=== PATIENT | male | born 1960 | race Caucasian/White ===

== ENCOUNTER 2018-07-04 09:16 | Emergency (ER) | payer BC ==
[~2018-07-04] VITALS: Ht 304.8 cm; Wt 119.7 kg
[~2018-07-04 09:16] MED LIST: DIPH1TAB45 PO
[2018-07-04] MEDS ORDERED: KETOROLAC 60 MG/2 ML VIAL IM STA (10:03)
[2018-07-04] MEDS ORDERED: CYCLOBENZAPRINE 10 MG (FLEXERIL) TAB PO STA (10:03)
--- NOTE | 2018-07-04 10:12 | ED Cough/URI ---
General Chief Complaint: Cough/Cold/Flu Symptoms Stated Complaint: LOWER BACK PAIN;COUGH Nursing Triage Note: 0922 - AMBULATED TO ROOM 06 VIA AMB. COUGH X5 MONTHS. COMPLAINS OF BACK PAIN RIGHT MIDDLE BACK. RECENT ADMIT TO [place] 2 WEEKS AGO FOR PNEUMONIA. IS SUPPOSE TO BE MAKING AN APPT WITH NATE. Sepsis Screen: No Definite Risk Source: patient Exam Limitations: no limitations History of Present Illness Date Seen by Provider: Jul 04, 2018 Time Seen by Provider: 09:51 Initial Comments Here with report of cough it's been going on chronically for several months. He was on a blood pressure medicine which I assume is MOUNA inhibitor that he had to stop due to cough but he still has the cough. He is due to see Dr. Coffman. This morning at about 8:30 he was coughing and then reached for something and has significant pain between the shoulder blade and the spine on the right side. It hurts when he moves his arm or takes a deep breath. Also hurts when he is coughing. Concerned he may have broke a rib and/or has pneumonia. Was treated for pneumonia a few weeks ago. He was at [facility] in [facility] for that. He is still working on follow-up appointment with Dr. Coffman. Timing/Duration: this morning, getting worse Severity/Quality: dry cough Prior Episodes/Possible Cause: chronic episodes Modifying Factors: Worse With Coughing; Improves With Rest Associated Symptoms: cough, fever/chills, shortness of breath Allergies and Home Medications Allergies Coded Allergies: No Known Drug Allergies (Unverified , 08/04/12) Home Medications Diphenoxylate/Atropine 1 Ea Tablet, 1 EA PO Q4H Prescribed by: KEVEN SANDERS on 08/04/12 1632 Patient Home Medication List Home Medication List Reviewed: Yes Review of Systems Review of Systems Constitutional: see HPI EENTM: no symptoms reported Respiratory: cough; No short of breath Cardiovascular: No chest pain, No edema Gastrointestinal: No abdominal pain, No nausea, No vomiting Musculoskeletal: back pain, muscle pain Skin: no symptoms reported Past Lwstgke-Xwdbmk-Vaxrsb Hx Past Med/Social Hx: Reviewed Nursing Past Med/Soc Hx Patient Social History Alcohol Use: Denies Use Recreational Drug Use: No Smoking Status: Never a Smoker Recent Foreign Travel: No Contact w/Someone Who Travel: No Recent Infectious Disease Expo: No Recent Hopitalizations: Yes ([facility] 2 WEEKS AGO FOR PNEUMONIA) Past Medical History Surgeries: Yes (bowel perforation) Ear Surgery, Orthopedic Respiratory: No Cardiac: Yes High Cholesterol, Hypertension Neurological: No Genitourinary: No Gastrointestinal: No Musculoskeletal: No Endocrine: No HEENT: No Cancer: No Integumentary: No Family Medical History Reviewed Nursing Family Hx Physical Exam Vital Signs - First Documented 07/04/18 09:34 Temp 97.4 Pulse 90 Resp 16 B/P (MAP) 144/79 (100) Pulse Ox 95 O2 Delivery Room Air Capillary Refill : Less Than 3 Seconds Height: 10'" Weight: 264lbs. oz. 119.080735rp; BMI Method:Stated General Appearance: WD/WN, no apparent distress HEENT: PERRL/EOMI, pharynx normal Neck: full range of motion, supple Respiratory: lungs clear, normal breath sounds Cardiovascular: regular rate, rhythm, no murmur Extremities: non-tender, other (pain with range of motion of the right arm and the anterior and posterior flexion of the shoulder which causes pain to the area between the scapula and spine. Point tenderness to lower third area with muscular spasm noted.) Neurologic/Psychiatric: alert, oriented x 3 Progress/Results/Core Measures Suspected Sepsis Recent Fever Within 48 Hours: No Infection Criteria Present: None New/Unexplained Altered Menta: No Sepsis Screen: No Definite Risk SIRS Temperature:97.4 Pulse: 90 Respiratory Rate: 16 Blood Pressure 144 /79 Mean: 100 Laboratory Tests 07/04/18 11:00: Creatinine 0.91 Results/Orders Lab Results Laboratory Tests Test 07/04/18 11:00 Range/Units Sodium Level 136 135-145 MMOL/L Potassium Level 4.6 3.6-5.0 MMOL/L Chloride Level 100 98-107 MMOL/L Carbon Dioxide Level 24 21-32 MMOL/L Anion Gap 12 5-14 MMOL/L Blood Urea Nitrogen 13 7-18 MG/DL Creatinine 0.91 0.60-1.30 MG/DL Estimat Glomerular Filtration Rate > 60 BUN/Creatinine Ratio 14 Glucose Level 100 70-105 MG/DL Calcium Level 9.8 8.5-10.1 MG/DL My Orders Orders - MARTINE IBARRA MD Chest Pa/Lat (2 View) (07/04/18 10:03) Cyclobenzaprine Tablet (Flexeril Tablet) (07/04/18 10:03) Ketorolac Injection (Toradol Injection) (07/04/18 10:03) I-Stat Bedside Testing (07/04/18 10:57) Saline Lock/Iv-Start (07/04/18 10:57) Ns Iv 1000 Ml (Sodium Chloride 0.9%) (07/04/18 10:57) Ct Chest W (07/04/18 10:58) Iohexol Injection (Omnipaque 350 Mg/Ml 1 (07/04/18 11:15) Received Contrast (Contrast Received) (07/04/18 11:15) Ns (Ivpb) (Sodium Chloride 0.9% Ivpb Bag (07/04/18 11:15) Basic Metabolic Panel (07/04/18 11:17) Medications Given in ED Current Medications Medications Dose Ordered Sig/Tony Route Start Time Stop Time Status Last Admin Dose Admin Iohexol 75 ml ONCE ONCE IV 07/04/18 11:15 07/04/18 11:16 DC 07/04/18 11:49 75 ML Sodium Chloride 100 ml ONCE ONCE IV 07/04/18 11:15 07/04/18 11:16 DC 07/04/18 11:49 80 ML Sodium Chloride 1,000 ml @ 0 mls/hr Q0M ONCE IV 07/04/18 10:57 07/04/18 10:59 DC 07/04/18 11:51 1,000 MLS/HR Vital Signs/I&O 07/04/18 09:34 Temp 97.4 Pulse 90 Resp 16 B/P (MAP) 144/79 (100) Pulse Ox 95 O2 Delivery Room Air Capillary Refill : Less Than 3 Seconds Blood Pressure Mean: 100 Progress Note : Progress Note Seen and evaluated. Chest x-ray. Patient has point tenderness in the area of the rhomboids. Toradol 60 mg IM and Flexeril 10 mg by mouth. Monitor patient. 1050: Chest x-ray noted. Patient needs CT scan further recommendations. I did discuss the case with Dr. Coffman. He is recommending CT chest with contrast. IV and i-STAT ordered. Normal saline [address] Coffman would like to see the patient in clinic as well on at 1 PM and this was discussed with the patient who agreed. Pending CT scan. 1325: I did discuss the CT results with the patient. There is concern about mass. I rediscussed this with Dr. Coffman. He 'll continue appointment on . Patient does have rib fracture and we will prescribe short course of pain medicine. Discharged home with return precautions. Patient and family verbalize understanding instructions and agreement with plan. Diagnostic Imaging Diagonstic Imaging: Xray Plain Films/CT/US/NM/MRI: chest Comments [facility], [place] NAME: EMILIA CRUZ [facility] REC#: [id number] PT STATUS: REG ER : 1960 PHYSICIAN: MARTINE IBARRA MD ADMIT DATE: 07/04/18/ER Draft Date of Exam:07/04/18 CHEST PA/LAT (2 VIEW) INDICATION: Cough x5 months. Back pain.. TECHNIQUE: Two view chest 10:18 AM CORRELATION STUDY: None FINDINGS: Heart size enlarged. Mediastinum is prominent including the region of the ascending aorta. Likely tortuous ectatic thoracic aorta. There is asymmetric fullness about the left perihilar region appears be likely over the posterior left hemithorax. This may be owing to underlying effusion, perhaps loculated. Right lung appearing generally clear. Slight accentuated thoracic kyphotic curvature. IMPRESSION: 1. Irregular density about the left hilar region likely over the posterior medial aspect of the left hemithorax. This could be perhaps some loculated fluid. Other process including consolidation or even mass lesion not excluded. 2. There is some prominent appearance about the region of the ascending aorta. 3. Given the overall findings as well the prolonged history of cough, in correlation CT imaging the chest would be recommended for followup. Dictated on workstation # [id number] Dict: 07/04/18 1036 Trans: 07/04/18 1043 [facility] [id number] Interpreted by: MATT HOYOS DO Electronically signed by: Diagonstic Imaging: CT Plain Films/CT/US/NM/MRI: chest Comments [facility] [place], [place] NAME: EMILIA CRUZ [facility] REC#: [id number] PT STATUS: REG ER : 1960 PHYSICIAN: MARTINE IBARRA MD ADMIT DATE: 07/04/18/ER Draft Date of Exam:07/04/18 CT CHEST W PROCEDURE: CT chest with contrast only. TECHNIQUE: Multiple contiguous axial images were obtained through the chest after administration of intravenous contrast. INDICATION: Cough and right-sided chest pain. Correlation is made with recent chest radiograph from earlier the same day. No axillary lymphadenopathy is seen. There are small lymph nodes in the mediastinum. The right hilum is unremarkable. There is a large mass/consolidation in the left hilum and infrahilar region correlating with chest radiograph abnormality. This measures approximately 9.7 cm AP by 7.6 cm transverse. This does appear to encase the left lower lobe bronchus resulting in some additional left lower lobe atelectasis. There is a small left effusion as well. No significant pericardial or right-sided pleural effusion is identified. The right lung is clear. Note is made of a fracture involving the right posterior lateral sixth rib. Bony structures are otherwise unremarkable. Upper abdomen is unremarkable. IMPRESSION: 1. Masslike density or consolidation in the left hilum/infrahilar region accounting for the chest radiographic abnormality. There is also a small associated left-sided effusion. Features are concerning for a primary lung neoplasm. Bronchoscopy is likely indicated. No definite mediastinal or right hilar lymphadenopathy is identified although there are some mildly prominent nodes in the subcarinal location. 2. Right posterior lateral sixth rib fracture. Dictated on workstation # [id number] Dict: 07/04/18 1208 Trans: 07/04/18 1230 [facility] [id number] Interpreted by: CELIA BURGOS MD Electronically signed by: Departure Impression Primary Impression: Mass of left lung Additional Impression: Fracture of six ribs of right side Qualified Codes: S22.41XA - Multiple fractures of ribs, right side, initial encounter for closed fracture Disposition: 01 HOME, SELF-CARE Condition: Stable Departure-Patient Inst. Decision time for Depature: 13:29 Referrals: DALTON COFFMAN,LOCAL PHYSICIAN (PCP) Primary Care Physician Patient Instructions: Rib Fracture (DC) Add. Discharge Instructions: All discharge instructions reviewed with patient and/or family. Voiced understanding. Is very important that he follow up with Dr. Coffman on at 1 PM as scheduled. You may take ibuprofen 800 mg every 8 hours as needed for pain. You may take Tylenol/acetaminophen 1000 mg every 8 hours as needed for pain but do not take with prescribed pain medicine as they both have acetaminophen in them. Take other medications as prescribed. Return for worse pain, fever, vomiting, weakness, breathing problems or other concerns as needed. Scripts Hydrocodone Bit/Acetaminophen (Hydrocodone/Acetaminophen 5/325mg Tablet) 1 Tab Tab 1 EACH PO Q4-6HR PRN for PAIN-MODERATE MDD 10, #10 TAB 0 Refills Prov: MARTINE IBARRA MD 07/04/18 Copy Copies To 1: DALTON COFFMAN TIMOTHY D MD Jul 04, 2018 10:12
[2018-07-04] MEDS ORDERED: FLUT1DIS28 (10:41)
[2018-07-04] MEDS ORDERED: LOSA50TA63 (10:41)
--- NOTE | 2018-07-04 10:44 | Diagnostic Imaging Report ---
INDICATION: Cough x5 months. Back pain.. TECHNIQUE: Two view chest 10:18 AM CORRELATION STUDY: None FINDINGS: Heart size enlarged. Mediastinum is prominent including the region of the ascending aorta. Likely tortuous ectatic thoracic aorta. There is asymmetric fullness about the left perihilar region appears be likely over the posterior left hemithorax. This may be owing to underlying effusion, perhaps loculated. Right lung appearing generally clear. Slight accentuated thoracic kyphotic curvature. IMPRESSION: 1. Irregular density about the left hilar region likely over the posterior medial aspect of the left hemithorax. This could be perhaps some loculated fluid. Other process including consolidation or even mass lesion not excluded. 2. There is some prominent appearance about the region of the ascending aorta. 3. Given the overall findings as well the prolonged history of cough, in correlation CT imaging the chest would be recommended for followup. Dictated by: Dictated on workstation # [id number]
[2018-07-04] MEDS ORDERED: NS IV 1000 ML 1,000 ML IV ONE (10:57)
[2018-07-04] MEDS ORDERED: RECEIVED CONTRAST 20 ML VIAL IV SCH (11:15)
[2018-07-04] MEDS ORDERED: NS 100 ML (IVPB) BAG IV ONE (11:15)
[2018-07-04] MEDS ORDERED: IOHEXOL 350 MG/ML 100 ML (OMNIPAQUE 350) VIAL IV ONE (11:15)
[2018-07-04 11:33] LABS: BUN/CREATININE RATIO 14; CALCIUM 9.8 MG/DL (8.5-10.1); CARBON DIOXIDE 24 MMOL/L (21-32); CHLORIDE 100 MMOL/L (98-107); CREATININE SERUM 0.91 MG/DL (0.60-1.30); GFR ESTIMATED > 60; GLUCOSE 100 MG/DL (70-105); POTASSIUM 4.6 MMOL/L (3.6-5.0); SODIUM 136 MMOL/L (135-145)
--- NOTE | 2018-07-04 12:31 | Diagnostic Imaging Report ---
PROCEDURE: CT chest with contrast only. TECHNIQUE: Multiple contiguous axial images were obtained through the chest after administration of intravenous contrast. INDICATION: Cough and right-sided chest pain. Correlation is made with recent chest radiograph from earlier the same day. No axillary lymphadenopathy is seen. There are small lymph nodes in the mediastinum. The right hilum is unremarkable. There is a large mass/consolidation in the left hilum and infrahilar region correlating with chest radiograph abnormality. This measures approximately 9.7 cm AP by 7.6 cm transverse. This does appear to encase the left lower lobe bronchus resulting in some additional left lower lobe atelectasis. There is a small left effusion as well. No significant pericardial or right-sided pleural effusion is identified. The right lung is clear. Note is made of a fracture involving the right posterior lateral sixth rib. Bony structures are otherwise unremarkable. Upper abdomen is unremarkable. IMPRESSION: 1. Masslike density or consolidation in the left hilum/infrahilar region accounting for the chest radiographic abnormality. There is also a small associated left-sided effusion. Features are concerning for a primary lung neoplasm. Bronchoscopy is likely indicated. No definite mediastinal or right hilar lymphadenopathy is identified although there are some mildly prominent nodes in the subcarinal location. 2. Right posterior lateral sixth rib fracture. Dictated by: Dictated on workstation # [id number]
--- NOTE | 2018-07-04 12:40 | NUR ---
THIS RN TO ASSUME CARE OF PT @ THIS TIME.
[2018-07-04] MEDS ORDERED: ACHD5005 PO (13:31)
[2018-07-04 13:40] VITALS: BP 136/91
== END 2018-07-04 13:40 | disposition home or self-care (01) ==
LOC: ER 09:20 → EDUNIT# 09:34 → ER 13:40
DX: S22.41XA Multiple fractures of ribs, right side, initial encounter for closed fracture (principal); R91.8 Other nonspecific abnormal finding of lung field; E78.00 Pure hypercholesterolemia, unspecified; I10 Essential (primary) hypertension; Z87.01 Personal history of pneumonia (recurrent); Z98.890 Other specified postprocedural states; X58.XXXA Exposure to other specified factors, initial encounter
CPT/HCPCS: 36415; 71046; 71260; 80048

== ENCOUNTER → 2018-07-11 | Outpatient (CLI) | payer BC ==
[~2018-07-11] MED LIST changes: +ACHD5005 PO; +FLUT1DIS28; +LOSA50TA63
--- NOTE | 2018-07-11 14:02 | Diagnostic Imaging Report ---
INDICATION: Left lower lobe lung mass. TECHNIQUE: Serum blood glucose level at the time of injection was 117 mg/dL. Patient was administered 13 mCi of F-18 FDG intravenously in the right antecubital location, and PET imaging was performed from the top of the skull to mid thighs. Noncontrast CT was also performed for attenuation correction and anatomic correlation. COMPARISON: No prior PET study is available for comparison. Comparison is made with prior chest CT from 07/04/2018. FINDINGS: There is symmetric activity throughout the brain. Soft tissues of the neck are unremarkable. Previously noted large mass in the left lower lobe does show significant diffuse hypermetabolism with SUV values reaching approximately 20. Vague uptake involving a right posterior rib fracture is also seen. Right hilum is unremarkable. No other pulmonary parenchymal abnormality is seen. Imaging through the abdomen and pelvis does show a mass involving the left adrenal gland which is hypermetabolic. SUV max of approximately 8.5. There is physiologic activity in the GI and tracts. Uptake in the lower lumbar vertebrae is seen with an SUV max of approximately 10.5. There is also a destructive lesion of the right iliac bone near the crest anteriorly with hypermetabolism. SUV max is 12.6. There is also a right sacral hypermetabolic mass in the region of the right sacral ala with SUV max of 15.7. A left iliac hypermetabolic lesion adjacent to the left SI joint is seen with SUV max of approximately 9. There is a soft tissue mass in the medial aspect of the left gluteal musculature which is hypermetabolic reaching approximately 14.5. IMPRESSION: 1. Large hypermetabolic mass in the left lower lobe consistent with neoplasm. There are numerous additional hypermetabolic masses in particular in the left adrenal gland, lower lumbar spine, bilateral iliac bones and sacrum, and left gluteal musculature suggestive of metastatic disease. Dictated by: Dictated on workstation # [id number]
== END ==
LOC: RAD 09:22
PROVIDERS: ATTEND Internal Medicine Critical Care Medicine
DX: E27.8 Other specified disorders of adrenal gland (principal); M89.9 Disorder of bone, unspecified; R91.8 Other nonspecific abnormal finding of lung field

== ENCOUNTER → 2018-07-11 | Outpatient (CLI) | payer BC | END | disposition home or self-care (01) | LOC: PREOP 08:38 | PROVIDERS: ATTEND Internal Medicine Critical Care Medicine | DX: Z01.818 Encounter for other preprocedural examination (principal) ==

== ENCOUNTER 2018-09-08 09:32 | Emergency (ER) | payer BC ==
[~2018-09-08] VITALS: Ht 177.8 cm; Wt 108.0 kg
[2018-09-08 10:06] LABS: BASOPHILS % (AUTO) 0 % (0-10); EOSINOPHILS # (AUTO) 0.1 10^3/uL (0.0-0.3); EOSINOPHILS % (AUTO) 0 % (0-10); HEMATOCRIT 33 % (40-54); HEMOGLOBIN 10.4 G/DL (13.3-17.7); LYMPHOCYTES % (AUTO) 7 % (12-44); MEAN CORPUSCULAR HEMOGLOBIN 26 PG (25-34); MEAN CORPUSCULAR HGB CONC 31 G/DL (32-36); MEAN CORPUSCULAR VOLUME 82 FL (80-99); MEAN PLATELET VOLUME 8.9 FL (7.4-10.4); MONOCYTES # (AUTO) 1.1 X 10^3 (0.0-1.0); MONOCYTES % (AUTO) 8 % (0-12); NEUTROPHILS # (AUTO) 12.1 X 10^3 (1.8-7.8); NEUTROPHILS % (AUTO) 85 % (42-75); PLATELET COUNT 365 10^3/uL (130-400); RED CELL DISTRIBUTION WIDTH 15.7 % (10.0-14.5); WHITE BLOOD COUNT 14.3 10^3/uL (4.3-11.0)
[2018-09-08] MEDS ORDERED: NS IV 1000 ML 1,000 ML IV SCH (10:25)
[2018-09-08] MEDS ORDERED: NS IV 1000 ML 1,000 ML IV ONE (10:25)
[2018-09-08] MEDS ORDERED: ASPIRIN 81 MG CHEW (CHILDREN'S ASA) PO ONE (10:30)
[2018-09-08] MEDS ORDERED: HOLD METFORMIN - RECEIVED CONTRAST 20 ML VIAL IV SCH (10:30)
[2018-09-08] MEDS ORDERED: IOHEXOL 350 MG/ML 150 ML (OMNIPAQUE 350) VIAL IV ONE (10:30)
[2018-09-08 10:33] LABS: ALANINE AMINOTRANSFERASE 27 U/L (0-55); ALBUMIN 3.7 GM/DL (3.2-4.5); ALKALINE PHOSPHATASE 191 U/L (40-136); BILIRUBIN,TOTAL 0.8 MG/DL (0.1-1.0); BUN/CREATININE RATIO 13; CARBON DIOXIDE 22 MMOL/L (21-32); CHLORIDE 99 MMOL/L (98-107); CREATININE SERUM 0.91 MG/DL (0.60-1.30); GFR ESTIMATED > 60; GLUCOSE 121 MG/DL (70-105); POTASSIUM 4.3 MMOL/L (3.6-5.0); SODIUM 132 MMOL/L (135-145); TOTAL PROTEIN 8.5 GM/DL (6.4-8.2)
--- NOTE | 2018-09-08 10:37 | ED Chest Pain ---
General Chief Complaint: Respiratory Problems Stated Complaint: CHEST PAIN Nursing Triage Note: PT AMB TO [facility] WITH COMPLAINT OF CHEST DISCOMFORT AND SOA. PT WAS TOLD TO COME HERE BY [facility]. PT IS CURRENTLY BEING TREATMED FOR STAGE 4 LUNG CANCER WITH METS TO BONE. STATES HE STARTED TAGRISSO 3 WEEKS AGO FOR HIS LUNG TUMOR. STATES HE HAS HAD A COUGH FOR THE LAST 3 WEEKS AND HAS INCREASING SOA OVER THE LAST 3 DAYS. PT STATES WHENEVER HE BELCHES, IT IMPROVES PAIN SOME. Nursing Sepsis Screen: No Definite Risk Source: patient, spouse Exam Limitations: no limitations History of Present Illness Date Seen by Provider: September 08, 2018 Time Seen by Provider: 10:01 Initial Comments The patient presents to ER by private conveyance with his spouse and chief complaint of some chest pain substernal nonradiating going on for the past 3 days constantly. He called his oncologist at [place] and the encourage symptomatic the ER as it may be a pulmonary embolism. He has a history of pulmonary embolism and is not on a blood thinner or antiplatelet. He has no history of coronary disease. He does not smoke nor have hypercholesterolemia. He uses losartan for high blood pressure. He has no history of lung disease such as COPD or asthma. He is not short of breath and does not use O2 at baseline. He is no swelling redness or pain in the calves. Says the pain is not worse with exertion but it does get better as he rests. He used to be on aspirin but it had stopped so they can do a bronchoscopy procedure and instead they decided to go to the oncologist's in [place] and they never did the bronchoscopy nor did they restart his aspirin. 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 He is on tagrissa after having had radiation therapy. Allergies and Home Medications Allergies Coded Allergies: No Known Drug Allergies (Unverified , 08/04/12) Home Medications Diphenoxylate/Atropine 1 Ea Tablet, 1 EA PO Q4H Prescribed by: KEVEN SANDERS on 08/04/12 1632 Hydrocodone Bit/Acetaminophen 1 Tab Tab, 1 EACH PO Q4-6HR PRN for PAIN-MODERATE Prescribed by: MARTINE IBARRA on 07/04/18 1331 Patient Home Medication List Home Medication List Reviewed: Yes Review of Systems Review of Systems Constitutional: No chills, No malaise, No weakness EENTM: No Blurred Vision, No Double Vision Respiratory: Cough (nonproductive); Denies Shortness of Air, Denies Wheezing Cardiovascular: See HPI, Chest Pain; Denies Edema, Denies Palpitations, Denies Syncope Gastrointestinal: Denies Abdomen Distended, Denies Abdominal Pain, Denies Constipated, Denies Diarrhea, Denies Nausea Genitourinary: Denies Burning, Denies Discharge Musculoskeletal: No back pain, No joint pain Past [id number] Hx Patient Social History Alcohol Use: Denies Use Recreational Drug Use: No Smoking Status: Never a Smoker Recent Foreign Travel: No Contact w/Someone Who Travel: No Recent Infectious Disease Expo: No Recent Hopitalizations: No Immunizations Up To Date Tetanus Booster (TDap): Unknown PED Vaccines UTD: Yes Past Medical History Surgeries: Yes (bowel perforation) Ear Surgery, Orthopedic Respiratory: Yes Cardiac: Yes High Cholesterol, Hypertension Neurological: No Genitourinary: No Gastrointestinal: No Musculoskeletal: No Endocrine: No HEENT: No Cancer: Yes Bone, Lung What Type of Treatment Did You: Radiation STAGE 4 LUNG CANCER, METS TO BONE Psychosocial: No Integumentary: No Blood Disorders: No Physical Exam Vital Signs Vital Signs - First Documented 09/08/18 09:32 Pulse 89 Resp 19 B/P (MAP) 115/73 (87) Pulse Ox 97 O2 Delivery Room Air Capillary Refill : Less Than 3 Seconds Height, Weight, BMI Height: 5'10.00" Weight: 238lbs. oz. 107.032111dr; BMI Method:Stated General Appearance: No Apparent Distress, WD/WN HEENT: PERRL/EOMI, Pharynx Normal; No Moist Mucous Membranes Neck: Full Range of Motion, Normal Inspection, Non Tender, Supple Respiratory: Chest Non Tender, Lungs Clear, Normal Breath Sounds, No Accessory Muscle Use, No Respiratory Distress Cardiovascular: Regular Rate, Rhythm, No Edema, Normal Peripheral Pulses Gastrointestinal: Normal Bowel Sounds, Non Tender, Soft Extremity: Normal Capillary Refill, Normal Inspection, No Pedal Edema Neurologic/Psychiatric: Alert, Oriented x3 Skin: Normal Color, Warm/Dry Focused Exam Lactate Level 09/08/18 11:18: Lactic Acid Level 1.02 Lactic Acid Level Laboratory Tests Test 09/08/18 11:18 Lactic Acid Level 1.02 MMOL/L (0.50-2.00) Progress/Results/Core Measures Results/Orders Lab Results Laboratory Tests Test 09/08/18 09:38 09/08/18 11:18 09/08/18 11:40 Range/Units White Blood Count 14.3 H 4.3-11.0 10^3/uL Red Blood Count 4.05 L 4.35-5.85 10^6/uL Hemoglobin 10.4 L 13.3-17.7 G/DL Hematocrit 33 L 40-54 % Mean Corpuscular Volume 82 80-99 FL Mean Corpuscular Hemoglobin 26 25-34 PG Mean Corpuscular Hemoglobin Concent 31 L 32-36 G/DL Red Cell Distribution Width 15.7 H 10.0-14.5 % Platelet Count 365 130-400 10^3/uL Mean Platelet Volume 8.9 7.4-10.4 FL Neutrophils (%) (Auto) 85 H 42-75 % Lymphocytes (%) (Auto) 7 L 12-44 % Monocytes (%) (Auto) 8 0-12 % Eosinophils (%) (Auto) 0 0-10 % Basophils (%) (Auto) 0 0-10 % Neutrophils # (Auto) 12.1 H 1.8-7.8 X 10^3 Lymphocytes # (Auto) 1.0 1.0-4.0 X 10^3 Monocytes # (Auto) 1.1 H 0.0-1.0 X 10^3 Eosinophils # (Auto) 0.1 0.0-0.3 10^3/uL Basophils # (Auto) 0.0 0.0-0.1 10^3/uL Neutrophils % (Manual) 92 % Lymphocytes % (Manual) 3 % Monocytes % (Manual) 5 % Eosinophils % (Manual) 0 % Basophils % (Manual) 0 % Band Neutrophils 0 % Anisocytosis SLIGHT Erythrocyte Sedimentation Rate 80 H 0-30 MM/HR D-Dimer 7.99 H 0.00-0.49 UG/ML Sodium Level 132 L 135-145 MMOL/L Potassium Level 4.3 3.6-5.0 MMOL/L Chloride Level 99 98-107 MMOL/L Carbon Dioxide Level 22 21-32 MMOL/L Anion Gap 11 5-14 MMOL/L Blood Urea Nitrogen 12 7-18 MG/DL Creatinine 0.91 0.60-1.30 MG/DL Estimat Glomerular Filtration Rate > 60 BUN/Creatinine Ratio 13 Glucose Level 121 H 70-105 MG/DL Calcium Level 9.0 8.5-10.1 MG/DL Corrected Calcium 9.2 8.5-10.1 MG/DL Total Bilirubin 0.8 0.1-1.0 MG/DL Aspartate Amino Transf (AST/SGOT) 16 5-34 U/L Alanine Aminotransferase (ALT/SGPT) 27 0-55 U/L Alkaline Phosphatase 191 H 40-136 U/L C-Reactive Protein High Sensitivity 17.36 H 0.00-0.50 MG/DL Total Protein 8.5 H 6.4-8.2 GM/DL Albumin 3.7 3.2-4.5 GM/DL Lactic Acid Level 1.02 0.50-2.00 MMOL/L Prothrombin Time 14.8 H 12.2-14.7 SEC INR Comment 1.1 0.8-1.4 Activated Partial Thromboplast Time 49 H 24-35 SEC Magnesium Level 1.9 1.8-2.4 MG/DL Myoglobin 40.1 10.0-92.0 NG/ML Troponin I < 0.028 <0.028 NG/ML B-Type Natriuretic Peptide 165.7 H <100.0 PG/ML Lipase 11 8-78 U/L My Orders Orders - STARLA,TALYA J Cbc With Automated Diff (09/08/18 10:01) Comprehensive Metabolic Panel (09/08/18 10:01) Hs C Reactive Protein (09/08/18 10:01) Fibrin Degradation Products (09/08/18 10:01) Manual Differential (09/08/18 09:38) Ed Iv/Invasive Line Start (09/08/18 10:25) Ns Iv 1000 Ml (Sodium Chloride 0.9%) (09/08/18 10:25) Ns Iv 1000 Ml (Sodium Chloride 0.9%) (09/08/18 10:25) Ct Angio Chest W (09/08/18 10:25) Iohexol Injection (Omnipaque 350 Mg/Ml 1 (09/08/18 10:30) Received Contrast (Hold Metformin- Contr (09/08/18 10:30) Magnesium (09/08/18 10:28) Ekg Tracing (09/08/18 10:28) Cardiac Profile 1 (09/08/18 10:28) Myoglobin Serum (09/08/18 10:28) Protime With Inr (09/08/18 10:28) Partial Thromboplastin Time (09/08/18 10:28) Monitor-Rhythm Ecg Trace Only (09/08/18 10:28) Lipid Panel (09/09/18 06:00) Ed Iv/Invasive Line Start (09/08/18 10:28) Lipase (09/08/18 10:28) BNP (09/08/18 10:28) Aspirin Chewable Tablet (Baby Aspirin Ch (09/08/18 10:30) Blood Culture (09/08/18 10:55) Sputum Culture (09/08/18 10:55) Lactic Acid Analyzer (09/08/18 10:55) Erythrocyte Sedimentation Rate (09/08/18 12:04) Ua Culture If Indicated (09/08/18 12:28) Lidocaine 2% Viscous 15 Ml (Xylocaine Vi (09/08/18 12:45) Famotidine Tablet (Pepcid Tablet) (09/08/18 12:31) Antacid Suspension (Mylanta Suspension (09/08/18 12:45) Medications Given in ED Current Medications Medications Dose Ordered Sig/Tony Route Start Time Stop Time Status Last Admin Dose Admin Al Hydrox/Mg Hydrox/Simethicone 30 ml ONCE ONCE PO 09/08/18 12:45 09/08/18 12:46 DC 09/08/18 12:51 30 ML Iohexol 140 ml ONCE ONCE IV 09/08/18 10:30 09/08/18 10:49 DC 09/08/18 10:54 140 ML Lidocaine HCl 15 ml ONCE ONCE PO 09/08/18 12:45 09/08/18 12:46 DC 09/08/18 12:52 15 ML Sodium Chloride 1,000 ml @ 0 mls/hr Q0M ONCE IV 09/08/18 10:25 09/08/18 10:26 DC 09/08/18 10:34 1,000 MLS/HR Vital Signs/I&O 09/08/18 09:32 Pulse 89 Resp 19 B/P (MAP) 115/73 (87) Pulse Ox 97 O2 Delivery Room Air Blood Pressure Mean: 87 Progress Progress Note #1: Time: 10:38 Progress Note The patient has refused aspirin as he thinks it may interfere with his monoclonal antibody. We did check it against a drug interaction database and there is no known interaction antiplatelets, NSAIDs or aspirin specifically. He would prefer to discuss that with his primary oncologist first before starting aspirin. The possibility of a clot in the lungs is a good potential based on his history of lung cancer however he is not tachycardic, afebrile and has normal oxygen saturation. His blood pressure was normal when he got here although it's get a little bit as he lays down to rest to a map of 74 area and consider giving him a liter of saline to flush his IV contrast we'll go ahead and order 2 L to see if that helps bumper his blood pressure up. He is in no acute distress and his chest pain is not reproducible. Plan to do a delta troponin even though his chest pain has been going on for the last 3 days. ED ACS 8 points. Low risk by the EDACS Score. If the patient also has: (1) EKG without new ischemic changes and (2) negative initial and 2-hour troponins, then this patient is safe for discharge to early outpatient follow-up investigation (or proceed to earlier inpatient testing). If EKG with ischemic changes or positive troponin, they are not low risk and require normal risk stratification. Progress Note #2: Time: 13:16 Progress Note GI cocktail did not help the patient's pain. We'll give him some hydrocodone and follow up outpatient. 1245 discussed the case with Dr. Tucker; [facility] [place]. He agrees with the workup does not see any chance that the targeted chemotherapy would be causing the symptoms. He says rarely, CHF with a BNP is normal. No clinical evidence of CHF and oriented. Occasionally he sees skin rashes. It is usually very well-tolerated so he would suggest we just treat the pain with something for the symptoms and allow outpatient follow-up. Initial ECG Impression Date: September 08, 2018 Initial ECG Impression Time: 09:43 Initial ECG Rate: 89 Initial ECG Rhythm: Normal Sinus Initial ECG Intervals: Normal Initial ECG Impression: Normal Initial ECG Comparisson: No Previous ECG Available Comment No acute ST elevation or depression. Diagnostic Imaging Diagonstic Imaging: CT (angiogram) Plain Films/CT/US/NM/MRI: chest Comments [facility] [place] NAME: JOSIAH CRUZAsia Conrad [facility] REC#: [id number] PT STATUS: REG ER : 1960 PHYSICIAN: TALYA CHA MD ADMIT DATE: 09/08/18/ER Draft Date of Exam:09/08/18 CT ANGIO CHEST W PROCEDURE: CT angiography of the chest with contrast. TECHNIQUE: Multiple contiguous axial images were obtained through the chest after uneventful bolus administration of intravenous contrast. 2D reconstructed CTA MIP acquisitions were also performed. Auto Exposure Controls were utilized during the CT exam to meet ALARA standards for radiation dose reduction. INDICATION: Mid chest discomfort as well as shortness of air for 3 days and cough. Patient has stage IV lung carcinoma. Correlation is made with prior CT chest from 07/04/2018. Evaluation of the pulmonary arterial system is without evidence of thromboembolism. No definite filling defects are seen within central, lobar or segmental branches. Thoracic aorta is normal caliber. No dissection is seen. There is a small to moderate pericardial effusion which has increased since prior CT. Masslike density in the left infrahilar lower lobe is again noted measuring approximately 9.8 x 6.8 cm, similar to prior study. The amount of pleural fluid in the left base has slightly increased but remains small. No significant pleural fluid on the right is identified. There is some associated compressive atelectasis or infiltrate in the left lower lobe. Minimal subsegmental atelectasis right lower lobe is noted. Upper abdomen does show a mass in left adrenal gland approximately 2.1 cm in size. This is better seen on today's study but appears similar to prior study. There is soft tissue fullness in the subcarinal region which appears more prominent than prior exam suggestive of adenopathy. Previously seen fracture of the right posterior sixth rib is again noted but does show some healing. IMPRESSION: 1. No evidence of pulmonary embolism or thoracic aortic dissection. 2. Left lower lobe mass, similar to prior exam. There has been some increase in pericardial and left pleural fluid since prior CT. Subcarinal lymphadenopathy also appears to be increased. 3. Left adrenal mass, stable. Dictated on workstation # [id number] Dict: 09/08/18 1105 Trans: 09/08/18 1119 CAR [id number] Interpreted by: CELIA BURGOS MD Electronically signed by: Reviewed: Reviewed by Me Departure Impression Primary Impression: Chest pain at rest Disposition: 01 HOME, SELF-CARE Condition: Stable Departure-Patient Inst. Decision time for Depature: 13:17 Referrals: NO,LOCAL PHYSICIAN (PCP) Primary Care Physician ENDER COVARRUBIAS (Family) Primary Care Physician Fortino SANTIAGO MD Patient Instructions: Chest Pain That Is Not Caused by the Heart (DC) Add. Discharge Instructions: Please call make appointment with the cook station early next week. Discuss if there is any possibility that the heart is the source of your pain. For your pain you may use the hydrocodone one tablet every 6 hours as needed. You may also cut the tablet in half if it's too potent. Return to the ER for pain becomes intractable or has new symptoms such as difficulty breathing. Keep your follow-up appointments with oncology as scheduled. Follow-up with your primary care doctor in the next 1-2 weeks to discuss appropriate blood pressure medicine dosing. Cut your losartan in half. All discharge instructions reviewed with patient and/or family. Voiced understanding. Scripts Hydrocodone Bit/Acetaminophen (Hydrocodone/Acetaminophen 5/325mg Tablet) 1 Tab Tab 1 EACH PO Q4-6HR PRN for PAIN-MODERATE MDD 10 for 7 Days, #30 TAB 0 Refills Prov: TALYA CHA 09/08/18 TALYA CHA September 08, 2018 10:37
[2018-09-08 10:40] LABS: ANISOCYTOSIS SLIGHT; BAND NEUTROPHILS 0 %; BASOPHILS % (MANUAL) 0 %; EOSINOPHILS % (MANUAL) 0 %; LYMPHOCYTES % (MANUAL) 3 %; MONOCYTES % (MANUAL) 5 %; NEUTROPHILS % (MANUAL) 92 %
--- NOTE | 2018-09-08 11:20 | Diagnostic Imaging Report ---
PROCEDURE: CT angiography of the chest with contrast. TECHNIQUE: Multiple contiguous axial images were obtained through the chest after uneventful bolus administration of intravenous contrast. 2D reconstructed CTA MIP acquisitions were also performed. Auto Exposure Controls were utilized during the CT exam to meet ALARA standards for radiation dose reduction. INDICATION: Mid chest discomfort as well as shortness of air for 3 days and cough. Patient has stage IV lung carcinoma. Correlation is made with prior CT chest from 07/04/2018. Evaluation of the pulmonary arterial system is without evidence of thromboembolism. No definite filling defects are seen within central, lobar or segmental branches. Thoracic aorta is normal caliber. No dissection is seen. There is a small to moderate pericardial effusion which has increased since prior CT. Masslike density in the left infrahilar lower lobe is again noted measuring approximately 9.8 x 6.8 cm, similar to prior study. The amount of pleural fluid in the left base has slightly increased but remains small. No significant pleural fluid on the right is identified. There is some associated compressive atelectasis or infiltrate in the left lower lobe. Minimal subsegmental atelectasis right lower lobe is noted. Upper abdomen does show a mass in left adrenal gland approximately 2.1 cm in size. This is better seen on today's study but appears similar to prior study. There is soft tissue fullness in the subcarinal region which appears more prominent than prior exam suggestive of adenopathy. Previously seen fracture of the right posterior sixth rib is again noted but does show some healing. IMPRESSION: 1. No evidence of pulmonary embolism or thoracic aortic dissection. 2. Left lower lobe mass, similar to prior exam. There has been some increase in pericardial and left pleural fluid since prior CT. Subcarinal lymphadenopathy also appears to be increased. 3. Left adrenal mass, stable. Dictated by: Dictated on workstation # [id number]
[2018-09-08 11:58] LABS: INR 1.1 (0.8-1.4); PROTHROMBIN TIME PATIENT 14.8 SEC (12.2-14.7)
[2018-09-08 12:08] LABS: LIPASE 11 U/L (8-78); MAGNESIUM 1.9 MG/DL (1.8-2.4)
[2018-09-08] MEDS ORDERED: FAMOTIDINE 20 MG (PEPCID) TABLET PO STA (12:31)
[2018-09-08] MEDS ORDERED: LIDOCAINE 2% VISCOUS 15 ML UDC PO ONE (12:45)
[2018-09-08] MEDS ORDERED: ANTACID SUSP 30 ML UDC (MYLANTA) PO ONE (12:45)
[2018-09-08] MEDS ORDERED: ACHD5005 PO (13:25)
[2018-09-08 13:34] VITALS: BP 112/67
== END 2018-09-08 13:34 | disposition home or self-care (01) ==
LOC: EDUNIT# 09:32 → ER 09:33
DX: R07.2 Precordial pain (principal); E78.00 Pure hypercholesterolemia, unspecified; I10 Essential (primary) hypertension; Z85.118 Personal history of other malignant neoplasm of bronchus and lung; Z86.711 Personal history of pulmonary embolism; Z85.830 Personal history of malignant neoplasm of bone; Z98.890 Other specified postprocedural states; Z92.21 Personal history of antineoplastic chemotherapy
CPT/HCPCS: 36415; 71275; 80053; 83605; 83690; 83735; 83874; 83880; 84484; 85007; 85027; 85379; 85610; 85652; 85730; 86141; 87040; 93005; 93041

== ENCOUNTER 2019-01-31 13:15 | Emergency (ER) | payer BC ==
[~2019-01-31] VITALS: Ht 177 cm; Wt 96.8 kg
--- NOTE | 2019-01-31 13:45 | ED Hip Pain/Injury ---
General Chief Complaint: Hip/Pelvic Problems Stated Complaint: HIP PAIN Nursing Triage Note: CHRONIC RIGHT HIP PAIN THAT IS GETTING WORSE. HAS CANCER IN THIS AREA. USES A LIDOCAINE PATCH. TALKED WITH HIS DR WHO TOLD HIM TO COME TO THE ER. PT RECIEVES CHEMO IN [place]. Source: patient Exam Limitations: no limitations History of Present Illness Date Seen by Provider: Jan 31, 2019 Time Seen by Provider: 13:42 Initial Comments To ER with posterior right hip pain that radiates down the right leg terminating at the right knee. He is being treated through the cancer treatment [facility] [place] for lung cancer metastatic to bone. PET/CT on 07/11/18 revealed F DG avid disease in the left lower lobe, left adrenal gland, bone including the lumbar spine, bilateral iliacs and the sacrum as well as the left gluteal musculature. Most recent chemotherapy was 3 weeks ago at cancer treatment [facility] in [place], treated with carboplatin/Alimta/Q Leonor but he had a severe reaction requiring hospitalization to the Q Leonor so that was stopped. Currently, he rates his pain a 3 out of 10 and is not terribly concerned about the pain itself didn't controlled more than just finding out what the pain is from. Timing/Duration: constant, getting worse Severity: moderate Location: hip (R) Modifying Factors: Worse With Movement Associated Symptoms: denies symptoms Allergies and Home Medications Allergies Coded Allergies: No Known Drug Allergies (Unverified , 08/04/12) Home Medications Diphenoxylate/Atropine 1 Ea Tablet, 1 EA PO Q4H Prescribed by: KEVEN SANDERS on 08/04/12 1632 Hydrocodone Bit/Acetaminophen 1 Tab Tab, 1 EACH PO Q4-6HR PRN for PAIN-MODERATE Prescribed by: MARTINE IBARRA on 07/04/18 1331 Hydrocodone Bit/Acetaminophen 1 Tab Tab, 1 EACH PO Q4-6HR PRN for PAIN-MODERATE Prescribed by: TALYA CHA on 09/08/18 1325 Patient Home Medication List Home Medication List Reviewed: Yes Review of Systems Constitutional: see HPI EENTM: see HPI Respiratory: no symptoms reported Cardiovascular: no symptoms reported Genitourinary: no symptoms reported Musculoskeletal: see HPI Skin: no symptoms reported Psychiatric/Neurological: No Symptoms Reported Past Ldcpcwp-Rnwiwo-Fqhgqf Hx Patient Social History Recent Foreign Travel: No Contact w/Someone Who Travel: No Recent Infectious Disease Expo: No Recent Hopitalizations: No Immunizations Up To Date Tetanus Booster (TDap): Unknown PED Vaccines UTD: Yes Past Medical History Surgeries: Yes (bowel perforation) Ear Surgery, Orthopedic Respiratory: Yes Cardiac: Yes High Cholesterol, Hypertension Neurological: No Genitourinary: No Gastrointestinal: No Musculoskeletal: No Endocrine: No HEENT: No Cancer: Yes Bone, Lung What Type of Treatment Did You: Radiation Psychosocial: No Integumentary: No Blood Disorders: No Physical Exam Vital Signs Vital Signs - First Documented 01/31/19 13:29 Temp 37.0 Pulse 99 Resp 16 B/P (MAP) 130/79 (96) Pulse Ox 100 O2 Delivery Room Air Capillary Refill : Less Than 3 Seconds Height, Weight, BMI Height: 5'10.00" Weight: 238lbs. oz. 107.801107lx; 30.00 BMI Method:Stated General Appearance: No Apparent Distress, WD/WN HEENT: PERRL/EOMI Neck: Full Range of Motion, Normal Inspection Cardiovascular: Regular Rate, Rhythm, Normal Peripheral Pulses Respiratory: Normal Breath Sounds, No Accessory Muscle Use, No Respiratory D istress Gastrointestinal: Normal Bowel Sounds, Non Tender, Soft Extremity: Normal Capillary Refill, Normal Inspection Neurologic/Psychiatric: Alert, Oriented x3 Skin: Normal Color, Warm/Dry Progress/Results/Core Measures Results/Orders Lab Results Laboratory Tests Test 01/31/19 13:55 Range/Units White Blood Count 3.6 L 4.3-11.0 10^3/uL Red Blood Count 2.86 L 4.35-5.85 10^6/uL Hemoglobin 7.0 L 13.3-17.7 G/DL Hematocrit 22 L 40-54 % Mean Corpuscular Volume 78 L 80-99 FL Mean Corpuscular Hemoglobin 24 L 25-34 PG Mean Corpuscular Hemoglobin Concent 32 32-36 G/DL Red Cell Distribution Width 18.5 H 10.0-14.5 % Platelet Count 476 H 130-400 10^3/uL Mean Platelet Volume 7.9 7.4-10.4 FL Neutrophils (%) (Auto) 49 42-75 % Lymphocytes (%) (Auto) 20 12-44 % Monocytes (%) (Auto) 29 H 0-12 % Eosinophils (%) (Auto) 1 0-10 % Basophils (%) (Auto) 0 0-10 % Neutrophils # (Auto) 1.8 1.8-7.8 X 10^3 Lymphocytes # (Auto) 0.7 L 1.0-4.0 X 10^3 Monocytes # (Auto) 1.1 H 0.0-1.0 X 10^3 Eosinophils # (Auto) 0.1 0.0-0.3 10^3/uL Basophils # (Auto) 0.0 0.0-0.1 10^3/uL Neutrophils % (Manual) 60 % Lymphocytes % (Manual) 19 % Monocytes % (Manual) 19 % Eosinophils % (Manual) 1 % Basophils % (Manual) 0 % Band Neutrophils 1 % Hypochromasia SLIGHT Poikilocytosis SLIGHT Anisocytosis SLIGHT Microcytosis SLIGHT Target Cells SLIGHT Elliptocytes SLIGHT Sodium Level 138 135-145 MMOL/L Potassium Level 3.8 3.6-5.0 MMOL/L Chloride Level 103 98-107 MMOL/L Carbon Dioxide Level 24 21-32 MMOL/L Anion Gap 11 5-14 MMOL/L Blood Urea Nitrogen 10 7-18 MG/DL Creatinine 0.83 0.60-1.30 MG/DL Estimat Glomerular Filtration Rate > 60 BUN/Creatinine Ratio 12 Glucose Level 124 H 70-105 MG/DL Calcium Level 8.9 8.5-10.1 MG/DL Corrected Calcium 9.5 8.5-10.1 MG/DL Total Bilirubin 0.2 0.1-1.0 MG/DL Aspartate Amino Transf (AST/SGOT) 15 5-34 U/L Alanine Aminotransferase (ALT/SGPT) 21 0-55 U/L Alkaline Phosphatase 116 40-136 U/L Total Protein 6.9 6.4-8.2 GM/DL Albumin 3.2 3.2-4.5 GM/DL My Orders Orders - ISABELLE TAM VASCULAR SURGERY PHYSICIAN Oxycodone Immediate Rel Tablet (Oxyir Ta (01/31/19 13:45) Cbc With Automated Diff (01/31/19 13:40) Comprehensive Metabolic Panel (01/31/19 13:40) Ct Lumbar Spine Wo (01/31/19 13:40) Red Cells Leukocytes Reduced (01/31/19 13:40) Type And Screen (01/31/19 13:40) Ct Pelvis Wo (01/31/19 13:47) Manual Differential (01/31/19 13:55) Medications Given in ED Current Medications Medications Dose Ordered Sig/Tony Route Start Time Stop Time Status Last Admin Dose Admin Oxycodone HCl 5 mg ONCE ONCE PO 01/31/19 13:45 01/31/19 13:46 DC 01/31/19 14:25 5 MG Vital Signs/I&O 01/31/19 13:29 Temp 37.0 Pulse 99 Resp 16 B/P (MAP) 130/79 (96) Pulse Ox 100 O2 Delivery Room Air Blood Pressure Mean: 96 Departure Communication (Admissions) His hemoglobin is 7, he is not symptomatic meaning no shortness of breath no generalized weakness no chest pain and no fatigue, states "I feel great". The Percocet pain pill did not help here, this was a 5 mg tablet AND a 10 mg tablet for home use. I'll fax his information to Dr. Anival Tucker at cancer treatment centers [facility] in [facility]. Impression Primary Impression: pathologic L4 fracture Additional Impression: Metastatic primary lung cancer Qualified Codes: C34.92 - Malignant neoplasm of unspecified part of left bronchus or lung Disposition: HOME, SELF-CARE Condition: Stable Departure-Patient Inst. Decision time for Depature: 16:17 Referrals: NO,LOCAL PHYSICIAN (PCP) Primary Care Physician ENDER COVARRUBIAS (Family) Primary Care Physician Patient Instructions: Lung Cancer Add. Discharge Instructions: 1. Pain medication as directed. This is constipating so taking a stool softener like Colace twice daily would be a good idea. Call your cancer treatment center physician tomorrow to schedule follow-up. All discharge instructions reviewed with patient and/or family. Voiced understanding. Scripts Oxycodone HCl/Acetaminophen (Percocet 10-325 mg Tablet) 1 Each Tablet 1 TAB PO Q6H PRN for PAIN-SEVERE MDD 3 TABS for 7 Days, #30 TAB Prov: ISABELLE TAM APRN 01/31/19 ISABELLE TAM APRN Jan 31, 2019 13:45
[2019-01-31 14:07] LABS: BASOPHILS % (AUTO) 0 % (0-10); EOSINOPHILS # (AUTO) 0.1 10^3/uL (0.0-0.3); EOSINOPHILS % (AUTO) 1 % (0-10); HEMATOCRIT 22 % (40-54); LYMPHOCYTES # (AUTO) 0.7 X 10^3 (1.0-4.0); LYMPHOCYTES % (AUTO) 20 % (12-44); MEAN CORPUSCULAR HGB CONC 32 G/DL (32-36); MEAN CORPUSCULAR VOLUME 78 FL (80-99); MEAN PLATELET VOLUME 7.9 FL (7.4-10.4); MONOCYTES # (AUTO) 1.1 X 10^3 (0.0-1.0); MONOCYTES % (AUTO) 29 % (0-12); NEUTROPHILS # (AUTO) 1.8 X 10^3 (1.8-7.8); NEUTROPHILS % (AUTO) 49 % (42-75); PLATELET COUNT 476 10^3/uL (130-400); RED CELL DISTRIBUTION WIDTH 18.5 % (10.0-14.5); WHITE BLOOD COUNT 3.6 10^3/uL (4.3-11.0)
[2019-01-31 14:08] LABS: MEAN CORPUSCULAR HEMOGLOBIN 24 PG (25-34)
[2019-01-31 14:26] LABS: ALANINE AMINOTRANSFERASE 21 U/L (0-55); ALBUMIN 3.2 GM/DL (3.2-4.5); ALKALINE PHOSPHATASE 116 U/L (40-136); BILIRUBIN,TOTAL 0.2 MG/DL (0.1-1.0); BUN/CREATININE RATIO 12; CALCIUM 8.9 MG/DL (8.5-10.1); CARBON DIOXIDE 24 MMOL/L (21-32); CHLORIDE 103 MMOL/L (98-107); CREATININE SERUM 0.83 MG/DL (0.60-1.30); GFR ESTIMATED > 60; GLUCOSE 124 MG/DL (70-105); POTASSIUM 3.8 MMOL/L (3.6-5.0); SODIUM 138 MMOL/L (135-145); TOTAL PROTEIN 6.9 GM/DL (6.4-8.2)
[2019-01-31 15:09] LABS: BAND NEUTROPHILS 1 %; BASOPHILS % (MANUAL) 0 %; EOSINOPHILS % (MANUAL) 1 %; HYPOCHROMASIA SLIGHT; LYMPHOCYTES % (MANUAL) 19 %; MONOCYTES % (MANUAL) 19 %; NEUTROPHILS % (MANUAL) 60 %
[2019-01-31 15:10] LABS: ANISOCYTOSIS SLIGHT; ELLIPT/OVALOCYTES SLIGHT; MICROCYTOSIS SLIGHT; POIKILOCYTOSIS SLIGHT; TARGET CELLS SLIGHT
[2019-01-31] MEDS ORDERED: OXYC1TAB12 PO (16:18)
[2019-01-31 16:33] VITALS: BP 130/79
--- NOTE | 2019-02-01 12:06 | RADIOLOGY REPORT ---
Patient name: EMILIA CRUZ ACC: [id number] : 1960 Age:58 years Room: Class: Emergency Gender: Male ORD DR: Phone: ATT DR: ISABELLE TAM Phone: Procedure: CT LUMBAR SPINE WO, CT PELVIS WO ORD Date: 01/31/2019 2:59 PM Reason for Study: Final Report PROCEDURE: CT lumbar spine and pelvis without contrast. TECHNIQUE: Multiple contiguous axial images were obtained through the lumbar spine and pelvis without the use of intravenous contrast. Sagittal and coronal reformations were then performed. Auto Exposure Controls were utilized during the CT exam to meet ALARA standards for radiation dose reduction. INDICATION: Right-sided hip pain. History of lung cancer with metastases to the bone. COMPARISON: PET/CT on 07/11/2018. FINDINGS: There has been interval development of a pathologic fracture involving the L4 vertebral body. The pre-existing metastatic lesion is again seen in the anterior aspect of the vertebral body with approximately 20% height loss of the anterior and mid aspect of the L4 vertebral body. No extension into the posterior elements is seen. There is a new sclerotic lesion in the L3 vertebral body since the prior PET/CT, most likely representing additional focus of metastatic disease. Within the sacrum, the large partially sclerotic partially lytic lesion is again noted in the right sacral ala, which has increased in size compared to the prior exam. Metastatic lesions are also seen in the right iliac crest and left ilium adjacent to the left SI joint. The large soft tissue lesion in the left gluteal musculature near the midline is again noted. IMPRESSION: 1. Interval development of a pathologic fracture involving the L4 vertebral body with approximately 20% height loss. No extension is seen into the posterior elements. 2. Redemonstration of metastatic lesions in the right sacral ala, right iliac crest, left ilium near the SI joint, and within the left gluteal musculature. These appear increased in size compared to the prior exam, particularly the right sacral ala lesion. This may represent the patient's complaint of right hip pain. 3. New metastatic lesion within the L3 vertebral body. Dictated by: Created by: Norbert Ovalle on 01/31/2019 3:12 PM Transcribed by: [email or web address] 01/31/2019 3:32 PM QUIANA
--- NOTE | 2019-02-01 12:12 | RADIOLOGY REPORT ---
[facility] [address] [place] [address] Patient name: EMILIA CRUZ ACC: [id number] : 1960 Age:58 years Room: Class: Emergency Gender: Male ORD DR: Phone: ATT DR: ISABELLE TAM Phone: Procedure: CT LUMBAR SPINE WO, CT PELVIS WO Code: [id number], [id number] ORD Date: 01/31/2019 2:59 PM Reason for Study: Final Report PROCEDURE: CT lumbar spine and pelvis without contrast. TECHNIQUE: Multiple contiguous axial images were obtained through the lumbar spine and pelvis without the use of intravenous contrast. Sagittal and coronal reformations were then performed. Auto Exposure Controls were utilized during the CT exam to meet ALARA standards for radiation dose reduction. INDICATION: Right-sided hip pain. History of lung cancer with metastases to the bone. COMPARISON: PET/CT on 07/11/2018. FINDINGS: There has been interval development of a pathologic fracture involving the L4 vertebral body. The pre-existing metastatic lesion is again seen in the anterior aspect of the vertebral body with approximately 20% height loss of the anterior and mid aspect of the L4 vertebral body. No extension into the posterior elements is seen. There is a new sclerotic lesion in the L3 vertebral body since the prior PET/CT, most likely representing additional focus of metastatic disease. Within the sacrum, the large partially sclerotic partially lytic lesion is again noted in the right sacral ala, which has increased in size compared to the prior exam. Metastatic lesions are also seen in the right iliac crest and left ilium adjacent to the left SI joint. The large soft tissue lesion in the left gluteal musculature near the midline is again noted. IMPRESSION: 1. Interval development of a pathologic fracture involving the L4 vertebral body with approximately 20% height loss. No extension is seen into the posterior elements. 2. Redemonstration of metastatic lesions in the right sacral ala, right iliac crest, left ilium near the SI joint, and within the left gluteal musculature. These appear increased in size compared to the prior exam, particularly the right sacral ala lesion. This may represent the patient's complaint of right hip pain. 3. New metastatic lesion within the L3 vertebral body. Dictated by: Created by: Norbert Ovalle on 01/31/2019 3:12 PM Transcribed by: SEDRICK 01/31/2019 3:32 PM QUIANA
== END 2019-01-31 16:32 | disposition home or self-care (01) ==
LOC: EDUNIT# 13:15 → ER 13:16
DX: M84.48XA Pathological fracture, other site, initial encounter for fracture (principal); C34.92 Malignant neoplasm of unspecified part of left bronchus or lung; C79.51 Secondary malignant neoplasm of bone; I10 Essential (primary) hypertension; E78.00 Pure hypercholesterolemia, unspecified
CPT/HCPCS: 36415; 72131; 72192; 80053; 85007; 85027; 86850; 86900; 86901; 86920

== ENCOUNTER 2019-04-09 09:59 | Emergency (ER) | payer BC ==
[2019-04-09] VITALS (14 sets, daily range): BP systolic 88–107; BP diastolic 56–77
[~2019-04-09] VITALS: Ht 177.8 cm; Wt 95.0 kg
[~2019-04-09 09:59] MED LIST changes: +OXYC1TAB12 PO
--- NOTE | 2019-04-09 11:36 | ED General ---
General Chief Complaint: General Problems/Pain Stated Complaint: BLOOD COUNT TO LOW Nursing Triage Note: Pt amb to triage with c/o low blood count. Pt reports to have labs drawn on this day and recieved call for "low blood count." Pt reports he was advised to be seen in ED for blood transfusion. Pt reports to have lung cancer and is currently recieiving chemotherapy. A&OX4. Nursing Sepsis Screen: No Definite Risk Source of Information: Patient Exam Limitations: No Limitations History of Present Illness Date Seen by Provider: Apr 09, 2019 Time Seen by Provider: 11:34 Initial Comments 58-year-old white male with lung cancer presents with anemia. He has been asked by his oncologist to come to the emergency department for transfusion of 2 units of blood. I spoke with the patient's oncology nurse Romana at area code [phone]. Patient's hemoglobin this morning was 6.4 and white count was 1500 with a platelet count of 39,000. On March 26 patient's hemoglobin had been 8.2. 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 They're requesting the patient received 2 units of packed cells. Allergies and Home Medications Allergies Coded Allergies: No Known Drug Allergies (Unverified , 08/04/12) Home Medications Diphenoxylate/Atropine 1 Ea Tablet, 1 EA PO Q4H Prescribed by: KEVEN SANDERS on 08/04/12 1632 Hydrocodone Bit/Acetaminophen 1 Tab Tab, 1 EACH PO Q4-6HR PRN for PAIN-MODERATE Prescribed by: MARTINE IBARRA on 07/04/18 1331 Hydrocodone Bit/Acetaminophen 1 Tab Tab, 1 EACH PO Q4-6HR PRN for PAIN-MODERATE Prescribed by: TALYA CHA on 09/08/18 1325 Oxycodone HCl/Acetaminophen 1 Each Tablet, 1 TAB PO Q6H PRN for PAIN-SEVERE Prescribed by: ISABELLE TAM on 01/31/19 1618 Patient Home Medication List Home Medication List Reviewed: Yes Review of Systems Review of Systems Constitutional: No chills, No fever; weakness EENTM: no symptoms reported; No blurred vision Respiratory: see HPI Cardiovascular: No chest pain, No palpitations Gastrointestinal: No abdominal pain, No nausea, No vomiting Genitourinary: no symptoms reported Musculoskeletal: no symptoms reported Skin: no symptoms reported Psychiatric/Neurological: No Symptoms Reported Hematologic/Lymphatic: See HPI Immunological/Allergic: no symptoms reported Past Mcaziea-Kwipve-Pilnyo Hx Past Med/Social Hx: Reviewed Nursing Past Med/Soc Hx Patient Social History Alcohol Use: Denies Use Recreational Drug Use: No Smoking Status: Never a Smoker 2nd Hand Smoke Exposure: No Recent Foreign Travel: No Contact w/Someone Who Travel: No Recent Infectious Disease Expo: No Recent Hopitalizations: No Immunizations Up To Date Tetanus Booster (TDap): Unknown PED Vaccines UTD: Yes Past Medical History Surgeries: Yes (bowel perforation) Ear Surgery, Orthopedic Respiratory: Yes Cardiac: Yes High Cholesterol, Hypertension Neurological: No Genitourinary: No Gastrointestinal: No Musculoskeletal: No Endocrine: No HEENT: No Cancer: Yes Bone, Lung Did You Recieve Any Treatments: Yes What Type of Treatment Did You: Chemotherapy, Radiation Psychosocial: No Integumentary: No Blood Disorders: No Physical Exam Vital Signs Vital Signs - First Documented 04/09/19 10:45 Temp 36.8 Pulse 86 Resp 18 B/P (MAP) 109/76 (87) Pulse Ox 99 O2 Delivery Room Air Capillary Refill : Less Than 3 Seconds Height, Weight, BMI Height: 5'10.00" Weight: 238lbs. oz. 107.039483jk; 30.00 BMI Method:Stated General Appearance: No Apparent Distress, WD/WN Eyes: Bilateral Eye Normal Inspection HEENT: Normal ENT Inspection Neck: Normal Inspection Cardiovascular: Regular Rate, Rhythm Gastrointestinal: Normal Bowel Sounds, Soft Extremity: Normal Inspection, Normal Range of Motion Neurologic/Psychiatric: Alert, No Motor/Sensory Deficits Skin: Normal Color, Warm/Dry Progress/Results/Core Measures Suspected Sepsis Recent Fever Within 48 Hours: No Infection Criteria Present: None New/Unexplained Altered Menta: No Sepsis Screen: No Definite Risk SIRS Temperature: Pulse: 86 Respiratory Rate: 18 Laboratory Tests 04/09/19 12:45: White Blood Count 1.5L Blood Pressure 109 /76 Mean: 87 Laboratory Tests 04/09/19 12:45: Platelet Count 42L Results/Orders Lab Results Laboratory Tests Test 04/09/19 12:45 Range/Units White Blood Count 1.5 L 4.3-11.0 10^3/uL Red Blood Count 2.23 L 4.35-5.85 10^6/uL Hemoglobin 6.1 *L 13.3-17.7 G/DL Hematocrit 19 *L 40-54 % Mean Corpuscular Volume 85 80-99 FL Mean Corpuscular Hemoglobin 27 25-34 PG Mean Corpuscular Hemoglobin Concent 32 32-36 G/DL Red Cell Distribution Width 14.8 H 10.0-14.5 % Platelet Count 42 L 130-400 10^3/uL Mean Platelet Volume 10.1 7.4-10.4 FL Neutrophils (%) (Auto) 52 42-75 % Lymphocytes (%) (Auto) 18 12-44 % Monocytes (%) (Auto) 30 H 0-12 % Eosinophils (%) (Auto) 0 0-10 % Basophils (%) (Auto) 0 0-10 % Neutrophils # (Auto) 0.8 L 1.8-7.8 X 10^3 Lymphocytes # (Auto) 0.3 L 1.0-4.0 X 10^3 Monocytes # (Auto) 0.4 0.0-1.0 X 10^3 Eosinophils # (Auto) 0.0 0.0-0.3 10^3/uL Basophils # (Auto) 0.0 0.0-0.1 10^3/uL My Orders Orders - BRYAN GODFREY MD Red Cells Leukocytes Reduced (04/09/19 12:17) Type And Screen (04/09/19 12:17) Cbc With Automated Diff (04/09/19 15:42) Manual Differential (04/09/19 12:45) Vital Signs/I&O 04/09/19 04/09/19 04/09/19 04/09/19 10:45 14:36 14:40 14:45 Temp 36.8 37.1 37.0 36.1 Pulse 86 79 75 74 Resp 18 11 20 26 B/P (MAP) 109/76 (87) 102/70 97/70 99/63 Pulse Ox 99 98 99 98 O2 Delivery Room Air 04/09/19 04/09/19 04/09/19 04/09/19 14:50 15:05 15:20 15:35 Temp 36.1 36.1 36.1 36.1 Pulse 77 75 75 82 Resp 24 20 21 22 B/P (MAP) 98/77 93/59 103/72 102/61 Pulse Ox 98 98 99 98 O2 Delivery Room Air Room Air Room Air Capillary Refill : Less Than 3 Seconds Blood Pressure Mean: 87 POS Progress Note : Time: 12:16 Progress Note I will order 2 units of packed cells for the patient. 4:45 p.m. Patient received 2 units of blood without difficulty. Departure Impression Primary Impression: Anemia Qualified Codes: D64.9 - Anemia, unspecified Disposition: 01 HOME, SELF-CARE Condition: Improved Departure-Patient Inst. Decision time for Depature: 16:50 Referrals: NO,LOCAL PHYSICIAN (PCP) Primary Care Physician ENDER COVARRUBIAS (Family) Primary Care Physician Patient Instructions: Anemia of Chronic Disease (DC) Add. Discharge Instructions: Follow-up care doctors as scheduled. Rest at home tonight. Return if any problems or questions. All discharge instructions reviewed with patient and/or family. Voiced understanding. BRYAN GODFREY MD Apr 09, 2019 11:36 POS
--- NOTE | 2019-04-09 13:55 | NUR ---
Pt denies needs at this time.
--- NOTE | 2019-04-09 15:43 | NUR ---
Pt's blood turned up to 500 ml/hr per Dr. Rogel at this time.
[2019-04-09 16:00] LABS: BASOPHILS % (AUTO) 0 % (0-10); EOSINOPHILS % (AUTO) 0 % (0-10); LYMPHOCYTES # (AUTO) 0.3 X 10^3 (1.0-4.0); LYMPHOCYTES % (AUTO) 18 % (12-44); MEAN CORPUSCULAR HEMOGLOBIN 27 PG (25-34); MEAN CORPUSCULAR HGB CONC 32 G/DL (32-36); MEAN CORPUSCULAR VOLUME 85 FL (80-99); MEAN PLATELET VOLUME 10.1 FL (7.4-10.4); MONOCYTES # (AUTO) 0.4 X 10^3 (0.0-1.0); MONOCYTES % (AUTO) 30 % (0-12); NEUTROPHILS # (AUTO) 0.8 X 10^3 (1.8-7.8); NEUTROPHILS % (AUTO) 52 % (42-75); PLATELET COUNT 42 10^3/uL (130-400); RED CELL DISTRIBUTION WIDTH 14.8 % (10.0-14.5); WHITE BLOOD COUNT 1.5 10^3/uL (4.3-11.0)
[2019-04-09 16:13] LABS: HEMATOCRIT 19 % (40-54); HEMOGLOBIN 6.1 G/DL (13.3-17.7)
--- NOTE | 2019-04-09 16:25 | NUR ---
second unit of blood manulally verified with Miguel Angel Sosa
[2019-04-09 17:07] LABS: NEUTROPHILS % (MANUAL) 62 %
[2019-04-09 17:08] LABS: BAND NEUTROPHILS 2 %; LYMPHOCYTES % (MANUAL) 10 %; MONOCYTES % (MANUAL) 26 %; PLATELET ESTIMATE LOW
[2019-04-09 17:09] LABS: HYPOCHROMASIA MODERATE; MICROCYTOSIS MARKED; POLYCHROMASIA SLIGHT
== END 2019-04-09 17:22 | disposition home or self-care (01) ==
LOC: EDUNIT# 09:59 → ER 10:01
DX: C34.32 Malignant neoplasm of lower lobe, left bronchus or lung (principal); C79.72 Secondary malignant neoplasm of left adrenal gland; C79.51 Secondary malignant neoplasm of bone; D63.0 Anemia in neoplastic disease; I10 Essential (primary) hypertension; E78.00 Pure hypercholesterolemia, unspecified
CPT/HCPCS: 36415; 85007; 85027; 86850; 86900; 86901; 86920; 99281

== ENCOUNTER 2019-05-23 07:32 | Emergency (ER) | payer BC ==
[~2019-05-23] VITALS: Ht 178 cm; Wt 90.0 kg
[2019-05-23] MEDS ORDERED: KETOROLAC 30 MG/ML VIAL IVP STA (08:30)
[2019-05-23] MEDS ORDERED: HYDROmorphone 2 MG/ML VIAL (DILAUDID) IV ONE (08:30)
[2019-05-23 08:40] LABS: BASOPHILS % (AUTO) 0 % (0-10); EOSINOPHILS % (AUTO) 1 % (0-10); HEMATOCRIT 26 % (40-54); HEMOGLOBIN 8.4 G/DL (13.3-17.7); LYMPHOCYTES # (AUTO) 0.6 X 10^3 (1.0-4.0); LYMPHOCYTES % (AUTO) 10 % (12-44); MEAN CORPUSCULAR HEMOGLOBIN 28 PG (25-34); MEAN CORPUSCULAR HGB CONC 32 G/DL (32-36); MEAN CORPUSCULAR VOLUME 88 FL (80-99); MEAN PLATELET VOLUME 8.3 FL (7.4-10.4); MONOCYTES # (AUTO) 0.9 X 10^3 (0.0-1.0); MONOCYTES % (AUTO) 16 % (0-12); NEUTROPHILS # (AUTO) 4.1 X 10^3 (1.8-7.8); NEUTROPHILS % (AUTO) 73 % (42-75); PLATELET COUNT 297 10^3/uL (130-400); RED CELL DISTRIBUTION WIDTH 15.5 % (10.0-14.5); WHITE BLOOD COUNT 5.6 10^3/uL (4.3-11.0)
--- NOTE | 2019-05-23 08:43 | ED Back Pain ---
General Chief Complaint: Back Problems Stated Complaint: BACK/LEG PAIN Nursing Triage Note: PT STATES LUNG CA WITH METS TO THE LOWER BACK, CC OF PAIN IN LOW BACK AND DOWN LT LEG. OXYCODONE 10 MG TAKEN AT 0630 WITH NO RELIEF. Nursing Sepsis Screen: No Definite Risk Source of Information: Patient Exam Limitations: No Limitations History of Present Illness Date Seen by Provider: May 23, 2019 Time Seen by Provider: 08:22 Initial Comments Here with report of back pain and pain radiating down the left leg. Has lung cancer with metastatic disease to spine and pelvis and also has pathological L4 compression fracture was noted last year. Follows with cancer treatment [facility]. He is on chemotherapy and apparently has started a new regimen. Denies any recent injuries. He took his normal dose of OxyContin 10 mg this morning but did not have relief. He has breakthrough oxycodone but did not try that. Has follow-up appointment next week with his cancer provider. Location: Lumbar Spine Timing/Duration: 3-4 Days, Getting Worse Severity: Moderate, Severe Pain/Injury Location: Back Radiation: Lower Legs, Upper Legs Method of Injury: Other (pathologic compression fracture) Modifying Factors: Worse With Movement Associated Symptoms: No muscle spasms, No fever, No weakness; numbness in legs/feet (left knee), lower back pain; No loss of bladder control, No loss of bowel control Allergies and Home Medications Allergies Coded Allergies: No Known Drug Allergies (Unverified , 08/04/12) Home Medications Diphenoxylate/Atropine 1 Ea Tablet, 1 EA PO Q4H Prescribed by: KEVEN SANDERS on 08/04/12 1632 Hydrocodone Bit/Acetaminophen 1 Tab Tab, 1 EACH PO Q4-6HR PRN for PAIN-MODERATE Prescribed by: MARTINE IBRARA on 07/04/18 1331 Hydrocodone Bit/Acetaminophen 1 Tab Tab, 1 EACH PO Q4-6HR PRN for PAIN-MODERATE Prescribed by: TALYA CHA on 09/08/18 1325 Oxycodone HCl/Acetaminophen 1 Each Tablet, 1 TAB PO Q6H PRN for PAIN-SEVERE Prescribed by: ISABELLE TAM on 01/31/19 1618 Patient Home Medication List Home Medication List Reviewed: Yes Review of Systems Constitutional: see HPI; No chills, No fever Respiratory: no symptoms reported Cardiovascular: no symptoms reported Musculoskeletal: see HPI, back pain, muscle pain; No neck pain Skin: no symptoms reported Psychiatric/Neurological: See HPI Past Ozcpyxr-Ayynjd-Hmwfnv Hx Past Med/Social Hx: Reviewed Nursing Past Med/Soc Hx Patient Social History Alcohol Use: Denies Use Recreational Drug Use: No Smoking Status: Never a Smoker 2nd Hand Smoke Exposure: No Recent Foreign Travel: No Contact w/Someone Who Travel: No Recent Infectious Disease Expo: No Recent Hopitalizations: No Physical Abuse: No Sexual Abuse: No Mistreated: No Fear: No Immunizations Up To Date Tetanus Booster (TDap): Unknown PED Vaccines UTD: Yes Date of Pneumonia Vaccine: May 16, 2019 Date of Influenza Vaccine: Apr 04, 2019 Seasonal Allergies Seasonal Allergies: No Past Medical History Surgeries: Yes (bowel perforation, ) Ear Surgery Respiratory: No Cardiac: Yes High Cholesterol, Hypertension Neurological: No Genitourinary: No Gastrointestinal: No Musculoskeletal: No Endocrine: No HEENT: No Cancer: Yes Bone, Lung Did You Recieve Any Treatments: Yes What Type of Treatment Did You: Chemotherapy, Radiation Psychosocial: No Integumentary: No Blood Disorders: No Family Medical History Reviewed Nursing Family Hx No Pertinent Family Hx Physical Exam Vital Signs Vital Signs - First Documented 05/23/19 07:39 Temp 37.1 Pulse 77 Resp 22 B/P (MAP) 119/82 (94) Pulse Ox 100 O2 Delivery Room Air Capillary Refill : Less Than 3 Seconds Height, Weight, BMI Height: 5'10.00" Weight: 238lbs. oz. 107.880972kx; 28.00 BMI Method:Stated General Appearance: WD/WN, Mild Distress Neck: Non Tender, Supple Cardiovascular: Regular Rate, Rhythm, No Murmur Respiratory: Lungs Clear, Normal Breath Sounds Back: No CVA Tenderness, Other (low back midline tenderness. Has lidocaine patches to the left hip which is helping states.) Extremity: Normal Range of Motion, Non Tender Neurologic/Psychiatric: Alert, Oriented x3 Skin: Normal Color, Warm/Dry Progress/Results/Core Measures Results/Orders Lab Results Laboratory Tests Test 05/23/19 08:20 Range/Units White Blood Count 5.6 4.3-11.0 10^3/uL Red Blood Count 2.98 L 4.35-5.85 10^6/uL Hemoglobin 8.4 L 13.3-17.7 G/DL Hematocrit 26 L 40-54 % Mean Corpuscular Volume 88 80-99 FL Mean Corpuscular Hemoglobin 28 25-34 PG Mean Corpuscular Hemoglobin Concent 32 32-36 G/DL Red Cell Distribution Width 15.5 H 10.0-14.5 % Platelet Count 297 130-400 10^3/uL Mean Platelet Volume 8.3 7.4-10.4 FL Neutrophils (%) (Auto) 73 42-75 % Lymphocytes (%) (Auto) 10 L 12-44 % Monocytes (%) (Auto) 16 H 0-12 % Eosinophils (%) (Auto) 1 0-10 % Basophils (%) (Auto) 0 0-10 % Neutrophils # (Auto) 4.1 1.8-7.8 X 10^3 Lymphocytes # (Auto) 0.6 L 1.0-4.0 X 10^3 Monocytes # (Auto) 0.9 0.0-1.0 X 10^3 Eosinophils # (Auto) 0.0 0.0-0.3 10^3/uL Basophils # (Auto) 0.0 0.0-0.1 10^3/uL Sodium Level 134 L 135-145 MMOL/L Potassium Level 4.7 3.6-5.0 MMOL/L Chloride Level 99 98-107 MMOL/L Carbon Dioxide Level 22 21-32 MMOL/L Anion Gap 13 5-14 MMOL/L Blood Urea Nitrogen 8 7-18 MG/DL Creatinine 1.03 0.60-1.30 MG/DL Estimat Glomerular Filtration Rate > 60 BUN/Creatinine Ratio 8 Glucose Level 110 H 70-105 MG/DL Calcium Level 9.1 8.5-10.1 MG/DL Corrected Calcium 9.7 8.5-10.1 MG/DL Total Bilirubin 0.4 0.1-1.0 MG/DL Aspartate Amino Transf (AST/SGOT) 15 5-34 U/L Alanine Aminotransferase (ALT/SGPT) 14 0-55 U/L Alkaline Phosphatase 110 40-136 U/L Total Protein 7.3 6.4-8.2 GM/DL Albumin 3.3 3.2-4.5 GM/DL My Orders Orders - MARTINE IBARRA MD Cbc With Automated Diff (05/23/19 08:30) Comprehensive Metabolic Panel (05/23/19 08:30) Ketorolac Injection (Toradol Injection) (05/23/19 08:30) Hydromorphone Injection (Dilaudid Inject (05/23/19 08:30) Ct Lumbar Spine Wo (05/23/19 08:33) Ct Pelvis Wo (05/23/19 08:33) Medications Given in ED Current Medications Medications Dose Ordered Sig/Tony Route Start Time Stop Time Status Last Admin Dose Admin Hydromorphone HCl 1 mg ONCE ONCE IV 05/23/19 08:30 05/23/19 08:33 DC 05/23/19 08:39 1 MG Vital Signs/I&O 05/23/19 05/23/19 05/23/19 07:39 08:39 08:39 Temp 37.1 37.1 37.1 Pulse 77 Resp 22 B/P (MAP) 119/82 (94) Pulse Ox 100 O2 Delivery Room Air Blood Pressure Mean: 94 Progress Progress Note : Progress Note Seen and evaluated. IV, labs, CT lumbar spine and pelvis, Dilaudid 1 mg IV and Toradol 30 mg IV ordered. Monitor patient. 1030: Overall doing much better. He will follow-up with his cancer doctor next Tuesday and they have a call into his nurse. There is a consideration for steroids but I will hold as I am not sure exactly which chemotherapy he is on. I did ask them to discuss this with her cancer nurse and they will. Discharged home with return precautions. Patient and family verbalize understanding of instructions and agreement with plan. Diagnostic Imaging Diagonstic Imaging: CT Plain Films/CT/US/NM/MRI: pelvis, other Comments [facility] [place], [place] NAME: EMILIA CRUZ [facility] REC#: [id number] PT STATUS: REG ER : 1960 PHYSICIAN: MARTINE IBARRA MD ADMIT DATE: 05/23/19/ER Draft Date of Exam:05/23/19 CT LUMBAR SPINE WO CLINICAL INDICATION: Patient with low back pain radiating to left leg. Patient has lung cancer. EXAMS: 1: CT scan of the lumbar spine performed without IV contrast. Sagittal and coronal reformatted images were created. Auto Exposure Controls were utilized during the CT exam to meet ALARA standards for radiation dose reduction. All CT scans use one or more of the following dose optimizing techniques: automated exposure control, MA and/or KvP adjustment based on patient size and exam type or iterative reconstruction. 2: CT scan of the pelvis performed without contrast. Sagittal and coronal reformatted images are created. Auto Exposure Controls were utilized during the CT exam to meet ALARA standards for radiation dose reduction. All CT scans use one or more of the following dose optimizing techniques: automated exposure control, MA and/or KvP adjustment based on patient size and exam type or iterative reconstruction. COMPARISON: CT scan of the pelvis and lumbar spine without contrast dated 01/31/2019. FINDINGS: CT lumbar spine: Again seen are lytic and destructive lesions involving the right side of the L4 vertebra with interval progression of compression due to pathologic fracture. The previously seen fracture in the region has progressed. There is increased sclerosis in this region. Stable sclerotic metastatic lesion involving right side of the L3 vertebra. There is no new metastatic lesion seen. There is stable degenerative spurs involving the lumbar spine and facet arthropathy. There is interval masslike enlargement of the bilateral adrenal glands with the left adrenal gland measuring 4.6 cm x 3.6 cm compared to the prior study measured at 2.7 cm x 1.9 cm. The right adrenal gland currently measures 3.5 cm x 2.0 cm compared to prior study measured at 9 mm in greatest width. Incompletely imaged suspected right renal cyst is again seen. The remainder the paraspinal soft tissue regions are unremarkable. PELVIS: There is no acute fracture or dislocation. Stable destructive sclerotic area involving the superior lateral right iliac crest and right side of the sacrum. There is similar size and configuration of the sclerotic and irregular areas involving the medial left iliac crest. There are other smaller areas of sclerotic lesions involving the sacrum and stable heterogeneous sclerotic areas involving the right iliac crest. There is interval decreased size of the solid lobulated mass in the medial left buttock/gluteal muscle region which measures 4.8 cm x 3.5 cm x 9.1 cm (AP x Trans x CC). This area was remeasured on the prior study and previously measured 6.1 cm x 4.9 cm x 9.7 cm (AP x Trans x CC). IMPRESSION: CT lumbar spine: 1: There is interval progression of loss of height involving the L4 vertebral body pathologic fracture due to metastatic disease. There is no retropulsed fracture component. There is increased sclerosis involving the L4 vertebra which may be related to healing and/or metastatic changes. 2: There is interval increased masslike enlargement of the bilateral adrenal glands most consistent with metastatic disease. 3: Stable metastatic sclerotic lesion involving the L3 vertebra. CT pelvis: 1: There is interval decreased size of the soft tissue mass involving the medial left buttock/gluteus muscle region concerning for metastatic disease. 2: There is no pelvic or hip fracture. 3: There are stable metastatic lesions involving the pelvis and sacrum, as described above. Dictated on workstation # [id number] Dict: 05/23/19 0915 Trans: 05/23/19 0953 [facility] [id number] Interpreted by: GOPI BROWN MD Electronically signed by: Departure Impression Primary Impression: Lumbar radiculopathy Additional Impression: Pain due to malignant neoplasm metastatic to bone Disposition: HOME, SELF-CARE Condition: Improved Departure-Patient Inst. Decision time for Depature: 10:32 Referrals: NO,LOCAL PHYSICIAN (PCP) Primary Care Physician ENDER COVARRUBIAS (Family) Primary Care Physician Patient Instructions: Bone Cancer, Radiculopathy (DC) Add. Discharge Instructions: All discharge instructions reviewed with patient and/or family. Voiced un derstanding. Continue home medications as directed. You may take your breakthrough medicine and I encouraged her to do so if you're having increased pain. Keep appointment next week with your cancer doctors. Call your cancer doctor for recheck and further evaluation. You should discuss with them about the possibility or option of using steroids for a few days to help with the radicular/sciatica pain. Return for worse pain, fever, vomiting, weakness, breathing problems, difficulty with walking or going to the bathroom, numbness between your legs or other concerns as needed. MARTINE IBARRA MD May 23, 2019 08:43
[2019-05-23 08:54] LABS: ALANINE AMINOTRANSFERASE 14 U/L (0-55); ALBUMIN 3.3 GM/DL (3.2-4.5); ALKALINE PHOSPHATASE 110 U/L (40-136); BILIRUBIN,TOTAL 0.4 MG/DL (0.1-1.0); BUN/CREATININE RATIO 8; CALCIUM 9.1 MG/DL (8.5-10.1); CARBON DIOXIDE 22 MMOL/L (21-32); CHLORIDE 99 MMOL/L (98-107); CREATININE SERUM 1.03 MG/DL (0.60-1.30); GFR ESTIMATED > 60; GLUCOSE 110 MG/DL (70-105); POTASSIUM 4.7 MMOL/L (3.6-5.0); SODIUM 134 MMOL/L (135-145); TOTAL PROTEIN 7.3 GM/DL (6.4-8.2)
--- NOTE | 2019-05-23 09:53 | Diagnostic Imaging Report ---
CLINICAL INDICATION: Patient with low back pain radiating to left leg. Patient has lung cancer. EXAMS: 1: CT scan of the lumbar spine performed without IV contrast. Sagittal and coronal reformatted images were created. Auto Exposure Controls were utilized during the CT exam to meet ALARA standards for radiation dose reduction. All CT scans use one or more of the following dose optimizing techniques: automated exposure control, MA and/or KvP adjustment based on patient size and exam type or iterative reconstruction. 2: CT scan of the pelvis performed without contrast. Sagittal and coronal reformatted images are created. Auto Exposure Controls were utilized during the CT exam to meet ALARA standards for radiation dose reduction. All CT scans use one or more of the following dose optimizing techniques: automated exposure control, MA and/or KvP adjustment based on patient size and exam type or iterative reconstruction. COMPARISON: CT scan of the pelvis and lumbar spine without contrast dated 01/31/2019. FINDINGS: CT lumbar spine: Again seen are lytic and destructive lesions involving the right side of the L4 vertebra with interval progression of compression due to pathologic fracture. The previously seen fracture in the region has progressed. There is increased sclerosis in this region. Stable sclerotic metastatic lesion involving right side of the L3 vertebra. There is no new metastatic lesion seen. There is stable degenerative spurs involving the lumbar spine and facet arthropathy. There is interval masslike enlargement of the bilateral adrenal glands with the left adrenal gland measuring 4.6 cm x 3.6 cm compared to the prior study measured at 2.7 cm x 1.9 cm. The right adrenal gland currently measures 3.5 cm x 2.0 cm compared to prior study measured at 9 mm in greatest width. Incompletely imaged suspected right renal cyst is again seen. The remainder the paraspinal soft tissue regions are unremarkable. PELVIS: There is no acute fracture or dislocation. Stable destructive sclerotic area involving the superior lateral right iliac crest and right side of the sacrum. There is similar size and configuration of the sclerotic and irregular areas involving the medial left iliac crest. There are other smaller areas of sclerotic lesions involving the sacrum and stable heterogeneous sclerotic areas involving the right iliac crest. There is interval decreased size of the solid lobulated mass in the medial left buttock/gluteal muscle region which measures 4.8 cm x 3.5 cm x 9.1 cm (AP x Trans x CC). This area was remeasured on the prior study and previously measured 6.1 cm x 4.9 cm x 9.7 cm (AP x Trans x CC). IMPRESSION: CT lumbar spine: 1: There is interval progression of loss of height involving the L4 vertebral body pathologic fracture due to metastatic disease. There is no retropulsed fracture component. There is increased sclerosis involving the L4 vertebra which may be related to healing and/or metastatic changes. 2: There is interval increased masslike enlargement of the bilateral adrenal glands most consistent with metastatic disease. 3: Stable metastatic sclerotic lesion involving the L3 vertebra. CT pelvis: 1: There is interval decreased size of the soft tissue mass involving the medial left buttock/gluteus muscle region concerning for metastatic disease. 2: There is no pelvic or hip fracture. 3: There are stable metastatic lesions involving the pelvis and sacrum, as described above. Dictated by: Dictated on workstation # [id number]
[2019-05-23 10:42] VITALS: BP 107/81
== END 2019-05-23 10:42 | disposition home or self-care (01) ==
LOC: EDUNIT# 07:32 → ER 07:33
DX: M54.16 Radiculopathy, lumbar region (principal); G89.3 Neoplasm related pain (acute) (chronic); C34.90 Malignant neoplasm of unspecified part of unspecified bronchus or lung; C79.51 Secondary malignant neoplasm of bone; C79.89 Secondary malignant neoplasm of other specified sites; I10 Essential (primary) hypertension; E78.00 Pure hypercholesterolemia, unspecified; Z87.311 Personal history of (healed) other pathological fracture
CPT/HCPCS: 36415; 72131; 72192; 80053; 85025

== ENCOUNTER 2019-06-18 17:15 | Emergency (ER) | payer BC ==
[~2019-06-18] VITALS: Ht 177.8 cm; Wt 97.6 kg
[2019-06-18 18:07] LABS: BASOPHILS % (AUTO) 0 % (0-10); EOSINOPHILS % (AUTO) 0 % (0-10); HEMATOCRIT 26 % (40-54); HEMOGLOBIN 8.5 G/DL (13.3-17.7); LYMPHOCYTES # (AUTO) 0.8 X 10^3 (1.0-4.0); LYMPHOCYTES % (AUTO) 3 % (12-44); MEAN CORPUSCULAR HEMOGLOBIN 29 PG (25-34); MEAN CORPUSCULAR HGB CONC 32 G/DL (32-36); MEAN CORPUSCULAR VOLUME 90 FL (80-99); MEAN PLATELET VOLUME 8.5 FL (7.4-10.4); MONOCYTES # (AUTO) 1.2 X 10^3 (0.0-1.0); MONOCYTES % (AUTO) 5 % (0-12); NEUTROPHILS % (AUTO) 92 % (42-75); PLATELET COUNT 204 10^3/uL (130-400); RED CELL DISTRIBUTION WIDTH 15.4 % (10.0-14.5); WHITE BLOOD COUNT 25.9 10^3/uL (4.3-11.0)
[2019-06-18 18:19] LABS: ALANINE AMINOTRANSFERASE 27 U/L (0-55); ALBUMIN 3.2 GM/DL (3.2-4.5); ALKALINE PHOSPHATASE 97 U/L (40-136); BILIRUBIN,TOTAL 0.2 MG/DL (0.1-1.0); BUN/CREATININE RATIO 23; CALCIUM 9.3 MG/DL (8.5-10.1); CARBON DIOXIDE 25 MMOL/L (21-32); CHLORIDE 98 MMOL/L (98-107); CREATININE SERUM 0.83 MG/DL (0.60-1.30); GFR ESTIMATED > 60; GLUCOSE 110 MG/DL (70-105); POTASSIUM 4.4 MMOL/L (3.6-5.0); SODIUM 133 MMOL/L (135-145); TOTAL PROTEIN 6.9 GM/DL (6.4-8.2)
[2019-06-18 18:29] LABS: BAND NEUTROPHILS 2 %; HYPOCHROMASIA MODERATE; LYMPHOCYTES % (MANUAL) 4 %; MONOCYTES % (MANUAL) 3 %; NEUTROPHILS % (MANUAL) 91 %; POLYCHROMASIA MODERATE; ROULEAUX SLIGHT
[2019-06-18] MEDS ORDERED: HOLD METFORMIN - RECEIVED CONTRAST 20 ML VIAL IV SCH (18:30)
[2019-06-18] MEDS ORDERED: NS 100 ML (IVPB) BAG IV ONE (18:30)
[2019-06-18] MEDS ORDERED: IOHEXOL 350 MG/ML 100 ML (OMNIPAQUE 350) VIAL IV ONE (18:30)
--- NOTE | 2019-06-18 18:38 | ED Cough/URI ---
General Chief Complaint: Coughing up blood Stated Complaint: COUGHING UP BLOOD Nursing Triage Note: Patient brought to ER room 6 with complaint of coughing up blood and shortness of breath. Patient is awake and alert x 4, and denies any pain. He states this began two days ago but has gotten much worse today. Patient has a history of metastatic lung cancer and states he had tumors removed off his spine at [facility] two weeks ago. He was seen at [facility] today to have sutures removed. Patient is currently being seen at [facility] in [place]. He states he has been doing chemo and will start radiation this week. Patient has an appointment at [facility] on Tuesday. Sepsis Screen: No Definite Risk Source: patient Exam Limitations: no limitations (AMANDA SOSA) History of Present Illness Date Seen by Provider: Jun 18, 2019 Time Seen by Provider: 18:00 Initial Comments 58-year-old male who was brought to the emergency room by his for complaints of shortness of breath, coughing up blood and lung cancer. Patient reports that he's had a cough for the past few days but started to cough up bright red colored blood around 1600 today. Patient has lung cancer with metastases to abdomen and bone. He recently had a tumor removed off of his spine and [facility] 2 weeks ago. He was seen and evaluated for follow-up and had sutures removed today. He is a patient of cancer [facility] and is an appointment to go back to [place] in 2 days for a treatment. Timing/Duration: this afternoon Severity/Quality: productive cough (blood) (AMANDA SOSA) Allergies and Home Medications Allergies Coded Allergies: No Known Drug Allergies (Unverified , 08/04/12) Home Medications Diphenoxylate/Atropine 1 Ea Tablet, 1 EA PO Q4H Prescribed by: KEVEN SANDERS on 08/04/12 1632 Hydrocodone Bit/Acetaminophen 1 Tab Tab, 1 EACH PO Q4-6HR PRN for PAIN-MODERATE Prescribed by: MARTINE IBARRA on 07/04/18 1331 Hydrocodone Bit/Acetaminophen 1 Tab Tab, 1 EACH PO Q4-6HR PRN for PAIN-MODERATE Prescribed by: TALYA CHA on 09/08/18 1325 Oxycodone HCl/Acetaminophen 1 Each Tablet, 1 TAB PO Q6H PRN for PAIN-SEVERE Prescribed by: ISABELLE TAM on 01/31/19 1618 Patient Home Medication List Home Medication List Reviewed: Yes (AMANDA SOSA) Review of Systems Review of Systems Constitutional: see HPI; No chills, No fever Respiratory: see HPI, cough, hemoptysis (AMANDA SOSA) All Other Systems Reviewed Negative Unless Noted: Yes (AMANDA SOSA) Past Hywxgkf-Cobhor-Rhftai Hx Past Med/Social Hx: Reviewed Nursing Past Med/Soc Hx (AMANDA SOSA) Patient Social History Alcohol Use: Denies Use Recreational Drug Use: No Smoking Status: Never a Smoker 2nd Hand Smoke Exposure: No Recent Foreign Travel: No Contact w/Someone Who Travel: No Recent Infectious Disease Expo: No Recent Hopitalizations: No (AMANDA SOSA) Immunizations Up To Date Tetanus Booster (TDap): Unknown PED Vaccines UTD: Yes Date of Pneumonia Vaccine: May 16, 2019 Date of Influenza Vaccine: Apr 04, 2019 (AMANDA SOSA) Seasonal Allergies Seasonal Allergies: No (AMANDA SOSA) Past Medical History Surgeries: Yes (bowel perforation, spine surgery to remove tumors) Ear Surgery Respiratory: No Cardiac: Yes High Cholesterol, Hypertension Neurological: No Genitourinary: No Gastrointestinal: No Musculoskeletal: No Endocrine: No HEENT: No Cancer: Yes Bone, Lung Did You Recieve Any Treatments: Yes What Type of Treatment Did You: Chemotherapy, Radiation Psychosocial: No Integumentary: No Blood Disorders: No (AMANDA SOSA) Family Medical History Reviewed Nursing Family Hx (AMANDA SOSA) No Pertinent Family Hx (AMANDA SOSA) Physical Exam Vital Signs - First Documented 06/18/19 17:30 Temp 36.4 Pulse 84 Resp 24 B/P (MAP) 131/84 (100) Pulse Ox 99 O2 Delivery Room Air (MARTINE IBARRA MD) Capillary Refill : Less Than 3 Seconds (AMANDA SOSA) Height: 5'10.00" Weight: 238lbs. oz. 107.426028ox; 30.00 BMI Method:Stated General Appearance: WD/WN, no apparent distress HEENT: PERRL/EOMI, normal ENT inspection, TMs normal, pharynx normal Respiratory: chest non-tender, lungs clear, normal breath sounds, no respiratory distress, no accessory muscle use, other (moderate amount of yobani red blood in his sputum) Cardiovascular: normal peripheral pulses, regular rate, rhythm, no edema, no gallop, no JVD, no murmur Gastrointestinal: normal bowel sounds, non tender, soft, no organomegaly, no pulsatile mass Extremities: normal capillary refill Neurologic/Psychiatric: alert, normal mood/affect, oriented x 3 Skin: normal color, warm/dry (AMANDA SOSA) Progress/Results/Core Measures Suspected Sepsis Recent Fever Within 48 Hours: No Infection Criteria Present: None New/Unexplained Altered Menta: No Sepsis Screen: No Definite Risk SIRS Temperature: Pulse: 84 Respiratory Rate: 24 Laboratory Tests 06/18/19 17:40: White Blood Count 25.9H Blood Pressure 131 /84 Mean: 100 Laboratory Tests 06/18/19 17:40: Creatinine 0.83, Platelet Count 204, Total Bilirubin 0.2 (AMANDA SOSA) Results/Orders Lab Results Laboratory Tests Test 06/18/19 17:40 Range/Units White Blood Count 25.9 H 4.3-11.0 10^3/uL Red Blood Count 2.91 L 4.35-5.85 10^6/uL Hemoglobin 8.5 L 13.3-17.7 G/DL Hematocrit 26 L 40-54 % Mean Corpuscular Volume 90 80-99 FL Mean Corpuscular Hemoglobin 29 25-34 PG Mean Corpuscular Hemoglobin Concent 32 32-36 G/DL Red Cell Distribution Width 15.4 H 10.0-14.5 % Platelet Count 204 130-400 10^3/uL Mean Platelet Volume 8.5 7.4-10.4 FL Neutrophils (%) (Auto) 92 H 42-75 % Lymphocytes (%) (Auto) 3 L 12-44 % Monocytes (%) (Auto) 5 0-12 % Eosinophils (%) (Auto) 0 0-10 % Basophils (%) (Auto) 0 0-10 % Neutrophils # (Auto) 24.0 H 1.8-7.8 X 10^3 Lymphocytes # (Auto) 0.8 L 1.0-4.0 X 10^3 Monocytes # (Auto) 1.2 H 0.0-1.0 X 10^3 Eosinophils # (Auto) 0.0 0.0-0.3 10^3/uL Basophils # (Auto) 0.0 0.0-0.1 10^3/uL Neutrophils % (Manual) 91 % Lymphocytes % (Manual) 4 % Monocytes % (Manual) 3 % Band Neutrophils 2 % Polychromasia MODERATE Hypochromasia MODERATE Rouleau SLIGHT Sodium Level 133 L 135-145 MMOL/L Potassium Level 4.4 3.6-5.0 MMOL/L Chloride Level 98 98-107 MMOL/L Carbon Dioxide Level 25 21-32 MMOL/L Anion Gap 10 5-14 MMOL/L Blood Urea Nitrogen 19 H 7-18 MG/DL Creatinine 0.83 0.60-1.30 MG/DL Estimat Glomerular Filtration Rate > 60 BUN/Creatinine Ratio 23 Glucose Level 110 H 70-105 MG/DL Calcium Level 9.3 8.5-10.1 MG/DL Corrected Calcium 9.9 8.5-10.1 MG/DL Total Bilirubin 0.2 0.1-1.0 MG/DL Aspartate Amino Transf (AST/SGOT) 20 5-34 U/L Alanine Aminotransferase (ALT/SGPT) 27 0-55 U/L Alkaline Phosphatase 97 40-136 U/L Total Protein 6.9 6.4-8.2 GM/DL Albumin 3.2 3.2-4.5 GM/DL (MARTINE IBARRA MD) My Orders Orders - MARTINE IBARRA MD Ceftriaxone For Iv Use (Rocephin For I (06/18/19 20:15) (MARTINE IBARRA MD) Medications Given in ED Current Medications Medications Dose Ordered Sig/Tony Route Start Time Stop Time Status Last Admin Dose Admin Iohexol 75 ml ONCE ONCE IV 06/18/19 18:30 06/18/19 18:31 DC 06/18/19 18:47 75 ML Sodium Chloride 100 ml ONCE ONCE IV 06/18/19 18:30 06/18/19 18:31 DC 06/18/19 18:47 100 ML (MARTINE IBARRA MD) Vital Signs/I&O 06/18/19 17:30 Temp 36.4 Pulse 84 Resp 24 B/P (MAP) 131/84 (100) Pulse Ox 99 O2 Delivery Room Air (MARTINE IBARRA MD) Vital Signs/I&O Capillary Refill : Less Than 3 Seconds (AMANDA SOSA) Blood Pressure Mean: 100 Progress Note : Progress Note I assumed care of the patient from Amanda Sosa pending labs and CT. In reev aluation of the patient, he reports that he has had 2 previous episodes of coughing up blood last and Tuesday in the mornings but they stopped. While he did have a fair amount of blood that he coughed up earlier, he has not had any issues since arrival. Monitor patient. 1924: I did discuss with the patient regarding the grossly enlarged mass in the chest. He is still not co ughing up blood now. Hemoglobin currently is 8.5. He does have markedly elevated white count which I believe is related to the steroids he started yesterday. He had previously been on dexamethasone and then was off for several days but restarted yesterday due to increasing pain. Did have back surgery 2 weeks ago to remove lesion in the lumbar spine region that was abutted to the spinal cord. He has done well from that since. 2030: I have discussed the case with Dr. Coffman. We will go ahead and initiate Rocephin 1 g IV now and continue outpatient antibiotic with Omnicef. I did discuss the case with the [facility]-call [facility] [place]. No new request. They are asking for the CT scans of possible which we will try to do. Patient would prefer to go home and at this point since he has had no further hemoptysis, I do believe that it is okay. She does carry increased risk due to the large mass his lungs and she is aware of this was discussed. He would like to go home and follow-up with the cancer [facility]. We will facilitate that. Discharged home with return precautions. Patient verbalize understanding instructions and agreement with plan. (MARTINE IBARRA MD) Diagnostic Imaging Diagonstic Imaging: CT Plain Films/CT/US/NM/MRI: chest Comments [facility]. [place], [place] NAME: EMILIA CRUZ [facility] REC#: [id number] PT STATUS: REG ER : 1960 PHYSICIAN: AMANDA SOSA ADMIT DATE: 06/18/19/ER Signed Date of Exam:06/18/19 CT CHEST W INDICATION: Hemoptysis, known history of lung cancer. TECHNIQUE: Multiple contiguous axial images were obtained through the chest after administration of intravenous contrast. Auto Exposure Controls were utilized during the CT exam to meet ALARA standards for radiation dose reduction. COMPARISON is made to the previous study of 09/08/2018. Compared to the prior study, there has been significant unfavorable change. The mass in the left lower lobe which had measured 9.8 x 6.8 cm on 09/08/2018 now measures about 16.5 x 13.2 cm. This mass abuts the left mainstem bronchus causing mild narrowing of the left mainstem bronchus. There are some areas of gas within the inferior portion of the mass which may represent necrosis. In addition, there are numerous pleural-based masses throughout the left pleural space which were not present on the prior study, compatible with pleural metastases. The largest such lesion is in the left pleural space posteriorly measuring about 8.5 x 4.4 cm. There are multiple smaller pleural-based metastases on the left side circumferentially surrounding the left lung. There are also some smaller lesions in the left upper lobe which appear to be intraparenchymal, including a cavitary lesion posteriorly. There are scattered smaller lesions in the right lung which are likely metastatic which were not seen previously. There is no significant pleural fluid collection. There is a left adrenal mass which is likely metastatic measuring about 4.5 cm, this only measured about 2.1 cm in the prior study. IMPRESSION: Compared to the previous study of 09/08/2018, the mass in the left lower lobe is much larger, as described above, measuring nearly 16.5 x 13.2 cm. The mass abuts the left mainstem bronchus. There are some areas of mottled gas within the inferior portion of the mass which may represent necrosis. There are also multiple pleural-based metastases throughout the left chest as well as some lesions in the left upper lobe parenchyma which appear to be intrapulmonary. There are numerous small probable metastases in the right lung as well which were not present previously. There is an enlarging left adrenal mass which is likely metastatic. Dictated by: Dictated on workstation # [id number] Dict: 06/18/191854 Trans: 06/18/191911 [facility] [id number] Interpreted by: XIOMY DILLARD MD Electronically signed by: XIOMY DILLARD MD 06/18/191911 Reviewed: Reviewed by In Diagonstic Imaging: Xray Plain Films/CT/US/NM/MRI: chest Comments [facility]. [place], [place] NAME: EMILIA CRUZ [facility] REC#: [id number] PT STATUS: REG ER : 1960 PHYSICIAN: AMANDA SOSA ADMIT DATE: 06/18/19/ER Signed Date of Exam:06/18/19 CHEST PA/LAT (2 VIEW) INDICATION: Hemoptysis EXAM: PA and lateral chest FINDINGS: There is a large left hilar mass that literally obscures the left hilum. It measures 15 cm in diameter. There is a small left pleural effusion and there is lateral pleural thickening. Right lung is clear. There is no pneumothorax. IMPRESSION: Large left hilar mass has increased dramatically in size compared to a prior exam dated 07/04/2018 consistent with the clinical history of lung cancer. Dictated by: Dictated on workstation # [id number] Dict: 06/18/191857 Trans: 06/18/191910 [facility] [place] [id number] Interpreted by: MARTINE LUQUE MD Electronically signed by: MARTINE LUQUE MD 06/18/191910 Reviewed: Reviewed by Me (MARTINE IBARRA MD) Departure Impression Primary Impression: Hemoptysis Additional Impression: Metastatic lung cancer (metastasis from lung to other site) Qualified Codes: C34.92 - Malignant neoplasm of unspecified part of left bronchus or lung Disposition: 01 HOME, SELF-CARE Condition: Stable Departure-Patient Inst. Decision time for Depature: 20:36 (MARTINE IBARRA MD) Referrals: NO,LOCAL PHYSICIAN (PCP) Primary Care Physician ENEDR COVARRUBIAS (Family) Primary Care Physician Patient Instructions: Lung Cancer, Coughing up Blood Add. Discharge Instructions: All discharge instructions reviewed with patient and/or family. Voiced understanding. Follow-up with your cancer treatment center. Take medications as directed. Return for worse pain, fever, vomiting, weakness, breathing problems or other concerns as needed. Continue home medications as previously prescribed. Scripts Cefdinir (Cefdinir) 300 Mg Capsule 300 MG PO BID, #14 CAP 0 Refills Prov: MARTINE IBARRA MD 06/18/19 AMANDA SOSA Jun 18, 2019 18:38 MARTINE IBARRA MD Jun 18, 2019 19:27
--- NOTE | 2019-06-18 19:09 | Diagnostic Imaging Report ---
INDICATION: Hemoptysis, known history of lung cancer. TECHNIQUE: Multiple contiguous axial images were obtained through the chest after administration of intravenous contrast. Auto Exposure Controls were utilized during the CT exam to meet ALARA standards for radiation dose reduction. COMPARISON is made to the previous study of 09/08/2018. Compared to the prior study, there has been significant unfavorable change. The mass in the left lower lobe which had measured 9.8 x 6.8 cm on 09/08/2018 now measures about 16.5 x 13.2 cm. This mass abuts the left mainstem bronchus causing mild narrowing of the left mainstem bronchus. There are some areas of gas within the inferior portion of the mass which may represent necrosis. In addition, there are numerous pleural-based masses throughout the left pleural space which were not present on the prior study, compatible with pleural metastases. The largest such lesion is in the left pleural space posteriorly measuring about 8.5 x 4.4 cm. There are multiple smaller pleural-based metastases on the left side circumferentially surrounding the left lung. There are also some smaller lesions in the left upper lobe which appear to be intraparenchymal, including a cavitary lesion posteriorly. There are scattered smaller lesions in the right lung which are likely metastatic which were not seen previously. There is no significant pleural fluid collection. There is a left adrenal mass which is likely metastatic measuring about 4.5 cm, this only measured about 2.1 cm in the prior study. IMPRESSION: Compared to the previous study of 09/08/2018, the mass in the left lower lobe is much larger, as described above, measuring nearly 16.5 x 13.2 cm. The mass abuts the left mainstem bronchus. There are some areas of mottled gas within the inferior portion of the mass which may represent necrosis. There are also multiple pleural-based metastases throughout the left chest as well as some lesions in the left upper lobe parenchyma which appear to be intrapulmonary. There are numerous small probable metastases in the right lung as well which were not present previously. There is an enlarging left adrenal mass which is likely metastatic. Dictated by: Dictated on workstation # [id number]
--- NOTE | 2019-06-18 19:10 | Diagnostic Imaging Report ---
INDICATION: Hemoptysis EXAM: PA and lateral chest FINDINGS: There is a large left hilar mass that literally obscures the left hilum. It measures 15 cm in diameter. There is a small left pleural effusion and there is lateral pleural thickening. Right lung is clear. There is no pneumothorax. IMPRESSION: Large left hilar mass has increased dramatically in size compared to a prior exam dated 07/04/2018 consistent with the clinical history of lung cancer. Dictated by: Dictated on workstation # [id number]
[2019-06-18] MEDS ORDERED: cefTRIAXone FOR IV USE 1,000 MG in WATER (STERILE) FOR INJECTION 10 ML IV ONE (20:15)
[2019-06-18] MEDS ORDERED: CEFD300C3 PO (20:37)
[2019-06-18 20:52] VITALS: BP 117/79
== END 2019-06-18 20:52 | disposition home or self-care (01) ==
LOC: EDUNIT# 17:15 → ER 17:16
DX: C34.92 Malignant neoplasm of unspecified part of left bronchus or lung (principal); C79.51 Secondary malignant neoplasm of bone; C78.89 Secondary malignant neoplasm of other digestive organs
CPT/HCPCS: 36415; 71046; 71260; 80053; 85007; 85027; 93041; 96374